=== PATIENT | female | born 1955 | race Caucasian/White ===

== ENCOUNTER 2019-12-20 01:53 | Observation (INO) | payer OTHER, SELFPAY ==
[2019-12-20] VITALS (13 sets, daily range): BP systolic 116–143; BP diastolic 61–79; PULSE 82–99; RESP 16–28; TEMP 36.4–36.6; O2SAT 83–98; BMI 23.3
--- NOTE | 2019-12-20 02:05 | XRR_ITS ---
PROCEDURE INFORMATION: Exam: XR Chest, 1 View Exam date and time: 12/20/2019 2:32 AM Age: 64 years old Clinical indication: Shortness of breath; Additional info: Cough TECHNIQUE: Imaging protocol: XR of the chest Views: 1 view. COMPARISON: CR Chest 2 views* [id number] 2017-09-20 18:18 FINDINGS: Lungs: There is a pulmonary parenchymal calcification consistent with remote granulomatous organism exposure. COPD with hyperexpanded lucent lungs. Interstitial thickening. Pleural space: Unremarkable. No pleural effusion. No pneumothorax. Heart/Mediastinum: Unremarkable. No cardiomegaly. Bones/joints: Unremarkable. XR/XR chest 1V portable [id number] IMPRESSION: COPD. No acute focal airspace opacities. Unchanged right apical pleural parenchymal thickening. Chronic mid left clavicle deformity.
[2019-12-20 02:37] LABS: Basophils # 0.1 10^3/uL (0.0-0.1); Basophils % 0.7 %; Eosinophils # 1.7 10^3/uL (0.0-0.8); Eosinophils % 15.2 %; Hematocrit 47.8 % (37.0-47.0); Hemoglobin 14.5 g/dL (11.5-15.3); Lymphocytes # 2.4 10^3/uL (0.8-4.8); Lymphocytes % 21.6 %; Mean Corpuscular HGB Conc 30.3 g/dL (30.0-36.0); Mean Corpuscular Hemoglobin 30.9 pg (28.0-34.0); Mean Corpuscular Volume 101.7 fL (81-99); Mean Platelet Volume 9.7 fL (7.4-10.4); Monocytes # 0.7 10^3/uL (0.2-0.9); Monocytes % 6.7 %; Neutrophils # 6.1 10^3/uL (1.8-7.7); Neutrophils % 55.6 %; Nucleated Red Blood Cells % 0 %; Platelet Count 249 10^3/cmm (130-400); Red Cell Distribution Width 13.2 % (12.1-15.1)
--- NOTE | 2019-12-20 02:43 | ED_ITS ---
HPI - SOB/Dyspnea General: Chief Complaint: Shortness of Breath/Dyspnea Stated Complaint: sob Time Seen by Provider: 12/20/19 02:05 History of Present Illness: HPI Narrative: Ms. Ramires is a nice 64-year-old female who comes in complaining of shortness of breath. She states her symptoms began 2 weeks ago and have progressively gotten worse. She denies any fever, chest pain, productive cough, hemoptysis or syncope. Patient states that she is wheezing. She was initially placed on Bactrim but completed this and continued to have symptoms. Then 4 days ago she was placed on doxycycline and an inhaled steroid but she states she still has not improved. The patient states exertion makes her symptoms worse and rest makes them better. She otherwise denies any complaints or concerns. Associated symptoms: Deny abdominal pain, chest congestion, chest pain, diaphoresis, dizziness, extremity pain, fever(s), hemoptysis, nausea, orthopnea, palpitations, polydipsia, syncope or vomiting Review of Systems General: Reports: other (negative unless marked) Const: Denies: fever, chills, body aches, fatigue, malaise or diaphoresis Eyes: Denies: change in vision or blurry vision ENMT: Denies: throat pain, painful swallowing, hoarseness, ear pain, ear discharge, Change in hearing or nasal discharge Card: Denies: chest pain, palpitations, irregular heart rhythm, syncope, pre- syncope, shortness of breath on exertion or shortness of breath when lying down Resp: Reports: shortness of breath, non-productive cough and wheezing; Denies: coughing up blood or chest congestion GI: Denies: abdominal pain, nausea, vomiting, vomiting blood, coffee grounds in vomit, diarrhea, constipation, cramping, blood in stool or black tarry stool : Denies: flank pain, painful urination, urinary frequency, urinary urgency, decreased urine ouput, urinary incontinence or blood in urine Musc: Denies: neck pain, back pain, extremity pain, extremity swelling, joint pain, joint swelling, joint warmth or joint stiffness Skin/Breast: Denies: rash, skin tenderness or yellow skin Neuro: Denies: headache, numbness in extremities, weakness in extremities, changes in sensation, lack of coordination, difficulty walking, dizziness, vertigo or confusion Endo: Denies: excessive thirst, tired all the time, cold intolerance, excessive sweating, flushing or hot flashes Colton/Lymph: Denies: easy bruising, easy bleeding, petechiae or enlarged lymph nodes All/Imm: Denies: hives, throat swelling, tongue swelling, facial swelling or acute wheezing PFSH ED PFSH: Medical History (Updated 12/20/19 @ 04:26 by Nadine Akins) COPD (chronic obstructive pulmonary disease) Left wrist dislocation Physical Exam Const: COMMON NORMALS: no apparent distress, oriented x3, no limitations, healthy appearing and well nourished EXAM LIMITATIONS: no altered mental status GENERAL APPEARANCE: cooperative, well kempt and well developed ORIENTATION/CONSCIOUSNESS: Yes awake HENMT: COMMON NORMALS: normocephalic, head/scalp atraumatic, hearing grossly normal bilaterally, external ears normal, EAC's normal, external nose normal and moist oral mucous membranes HEAD & SCALP: normal to inspection, normocephalic and atraumatic FACE & SINUS: normal facial exam and face symmetric NOSE: external nose normal and nares normal EXTERNAL EAR: Yes external ears normal EXTERNAL AUDITORY CANAL: EAC's normal MOUTH: oral and palatal mucosa normal and tongue normal Eye: COMMON NORMALS: PERRL, EOMs intact bilaterally, conjunctivae normal and no scleral icterus GENERAL EYE: normal appearance of both eyes and normal light reflex CONJUNCTIVA: Yes conjunctivae normal SCLERA: sclerae normal CORNEA: Yes corneas normal PUPIL: Yes PERRL DIRECT OPHTHALMOSCOPY: Yes normal light reflex Neck/C-Spine: COMMON NORMALS: full ROM, no lymphadenopathy, supple, no meningeal signs and no JVD GENERAL: Yes normal visual inspection and Yes trachea midline CERVICAL SPINE: Yes cervical ROM normal Chest: COMMONS NORMALS: inspection of chest normal and palpation of chest normal Resp: EFFORT & INSPECTION: Yes tachypneic, Yes pursed lip breathing, Yes labored, Yes actively coughing and Yes audible wheezes AUSCULTATION: rhonchi, wheezes and diminished lung sounds Cardio: COMMON NORMALS: no JVD, regular rate, regular rhythm, S1 normal heart sound, S2 normal heart sound, no gallops, no clicks, no murmurs and no rub JUGULAR VENOUS DISTENTION: no JVD RATE: regular rate RHYTHM: regular rhythm HEART SOUNDS: S1 normal and S2 normal GI: COMMON NORMALS: soft to palpation, non-tender, no hepatosplenomegaly and no masses INSPECTION: Yes normal to inspection PALPATION: Yes soft and Yes no hepatosplenomegaly : COMMON NORMALS: Yes no CVA tenderness BLADDER/KIDNEY EXAM: Yes no CVA tenderness Back/Pelvis: COMMON NORMALS: no CVA tenderness, thoracic and lumbar spine normal to inspection, no thoracic nor lumbar tenderness and thoraco-lumbar ROM normal Extremity: COMMON NORMALS: normal to inspection, full ROM, normal capillary refill, no joint enlargement, no clubbing, cyanosis or edema and no calf tenderness Neuro: COMMON NORMALS: oriented x3, CN's II-XII intact bilaterally, moves all extremities, no focal motor deficits and no sensory deficits noted MENINGEAL SIGNS: Yes no meningeal signs Psych: COMMON NORMALS: mental status grossly normal, thought process normal, cooperative, affect normal, speech normal and activity/motor behavior normal APPEARANCE: Yes well kempt SPEECH: Yes normal speech THOUGHT PROCESS: normal thought process Skin: COMMON NORMALS: no rashes or lesions noted, skin turgor normal, no jaundice, no petechiae and no mottling GENERAL SKIN EXAM: no rashes or lesions noted and turgor normal Course ED course: 0308 -patient's breathing better with more air movement after DuoNeb treatments. Vital Signs: Vital signs: Vital Signs Temperature 97.6 F 12/20/19 02:04 Pulse Rate 89 12/20/19 02:43 Respiratory Rate 18 12/20/19 02:35 Blood Pressure 130/78 12/20/19 02:04 Pulse Oximetry 98 12/20/19 02:43 MDM - SOB/Dyspnea MDM Narrative: Medical decision making narrative: 0423 -the patient is doing better and moving much more air after breathing treatments. She no across conversational dyspnea and is okay while at rest but does necessitate at least 2 L of nasal cannula oxygen to maintain oxygen saturation of 90% or higher. Believe that she likely has a COPD exacerbation with hypoxic respiratory failure. She is not in distress and will not need BiPAP at this time. She is not hypercapnic. I reviewed the case in full with Dr. Sommer, he agrees to admit and will place admission orders. We will send the COVID-19 testing and the patient has been in respiratory precautions since arrival. Lab Data: Labs: Lab Results 12/20/19 12/20/19 12/20/19 Range/Units 02:10 02:10 02:10 WBC 11.0 H (4.0-10.0) 10^3/ uL RBC 4.70 (4.1-5.3) 10^6/u L Hgb 14.5 (11.5-15.3) g/dL Hct 47.8 H (37.0-47.0) % MCV 101.7 H (81-99) fL MCH 30.9 (28.0-34.0) pg MCHC 30.3 (30.0-36.0) g/dL RDW 13.2 (12.1-15.1) % Plt Count 249 (130-400) 10^3/c mm MPV 9.7 (7.4-10.4) fL Neut % (Auto) 55.6 % Lymph % (Auto) 21.6 % Peach % (Auto) 6.7 % Eos % (Auto) 15.2 % Baso % (Auto) 0.7 % Neut # (Auto) 6.1 (1.8-7.7) 10^3/u L Lymph # (Auto) 2.4 (0.8-4.8) 10^3/u L Peach # (Auto) 0.7 (0.2-0.9) 10^3/u L Eos # (Auto) 1.7 H (0.0-0.8) 10^3/u L Baso # (Auto) 0.1 (0.0-0.1) 10^3/u L Nucleated RBC % (a uto) 0 % Nucleated RBCs # 0.0 /100WBC Specimen Type Sample Site ABG pH (7.35-7.45) ABG pCO2 (35-45) mmHg ABG pO2 (80.0-100.0) mmH g ABG HCO3 (22-26) mmol/L ABG Base Excess (-2.0-2.0) mmol/ L Jose Test Hematocrit (37-47) % O2 Delivery Device O2 Liters/Min % Group Care Worker ID Sodium 139 (136-145) mmol/L Potassium 4.0 (3.5-5.1) mmol/L Chloride 101 (98-107) mmol/L Carbon Dioxide 26 (22-29) mmol/L Anion Gap 16.0 (5-19) BUN 13 (8-23) mg/dL Creatinine 0.9 (0.5-0.9) mg/dL GFR Calculation 63.4 L (90-130) mL/min Glucose 116 H (65-115) mg/dL Calculated Osmolal ity 285 (285-295) mOsm/k g Lactic Acid (0.5-2.2) mmol/L Calcium 10.3 (8.5-10.5) mg/dL Magnesium 2.1 (1.7-2.3) mg/dL Total Bilirubin 0.2 (0.15-1.2) mg/dL AST 17 (0-32) U/L ALT 11 (0-33) U/L Alkaline Phosphata se 150 H (35-105) IU/L Troponin T Baselin e 8 (0-10) ng/mL NT-Pro-B Natriuret Pep 260 H (0-125) pg/mL Total Protein 7.5 (6.6-8.7) g/dL Albumin 4.4 (3.5-5.2) g/dL Globulin 3.1 (1.3-4.6) g/dL Influenza Type A A g (Negative) Influenza Type B A g (Negative) 12/20/19 12/20/19 12/20/19 Range/Units 02:10 02:15 02:40 WBC (4.0-10.0) 10^3/ uL RBC (4.1-5.3) 10^6/u L Hgb (11.5-15.3) g/dL Hct (37.0-47.0) % MCV (81-99) fL MCH (28.0-34.0) pg MCHC (30.0-36.0) g/dL RDW (12.1-15.1) % Plt Count (130-400) 10^3/c mm MPV (7.4-10.4) fL Neut % (Auto) % Lymph % (Auto) % Peach % (Auto) % Eos % (Auto) % Baso % (Auto) % Neut # (Auto) (1.8-7.7) 10^3/u L Lymph # (Auto) (0.8-4.8) 10^3/u L Peach # (Auto) (0.2-0.9) 10^3/u L Eos # (Auto) (0.0-0.8) 10^3/u L Baso # (Auto) (0.0-0.1) 10^3/u L Nucleated RBC % (a uto) % Nucleated RBCs # /100WBC Specimen Type Arterial Sample Site Brachial, left ABG pH 7.39 (7.35-7.45) ABG pCO2 45.0 (35-45) mmHg ABG pO2 93.0 (80.0-100.0) mmH g ABG HCO3 27.0 H (22-26) mmol/L ABG Base Excess 1.5 (-2.0-2.0) mmol/ L Jose Test N/a Hematocrit 44.6 (37-47) % O2 Delivery Device Nc O2 Liters/Min 2.0 % Group Care Worker ID [email or web address] Sodium (136-145) mmol/L Potassium (3.5-5.1) mmol/L Chloride (98-107) mmol/L Carbon Dioxide (22-29) mmol/L Anion Gap (5-19) BUN (8-23) mg/dL Creatinine (0.5-0.9) mg/dL GFR Calculation (90-130) mL/min Glucose (65-115) mg/dL Calculated Osmolal ity (285-295) mOsm/k g Lactic Acid 0.7 (0.5-2.2) mmol/L Calcium (8.5-10.5) mg/dL Magnesium (1.7-2.3) mg/dL Total Bilirubin (0.15-1.2) mg/dL AST (0-32) U/L ALT (0-33) U/L Alkaline Phosphata se (35-105) IU/L Troponin T Baselin e (0-10) ng/mL NT-Pro-B Natriuret Pep (0-125) pg/mL Total Protein (6.6-8.7) g/dL Albumin (3.5-5.2) g/dL Globulin (1.3-4.6) g/dL Influenza Type A A g Negative (Negative) Influenza Type B A g Negative (Negative) Imaging Data^: CXR: My impression: COPD changes but no focal infiltrates. CT Chest: Radiologist's impression: [address] [address] [address] Scan Report Signed Patient: Julia Ramires Unit #: [id number] : 1955 Age/Sex: 64 / F ADM Date: 12/20/19 Loc: ER Room/Bed: Attending Dr: Ordering Provider/Ordering MD: Nadine Akins DO Date of Service: 12/20/19 Procedure(s): CT angio chest PE protcl [id number] Accession Number(s): [id number] Report Number: [id number] PROCEDURE INFORMATION: Exam: CT Angiography Chest With Contrast Exam date and time: 12/20/2019 3:14 AM Age: 64 years old Clinical indication: Shortness of breath; Additional info: Dyspnea, hypoxia TECHNIQUE: Imaging protocol: Computed tomographic angiography of the chest with intravenous contrast. 3D rendering: MIP and/or 3D reconstructed images were created by the technologist. Total DLP: 611.23 mGy-cm Radiation optimization: All CT scans at this facility use at least one of these dose optimization techniques: automated exposure control; mA and/or kV adjustment per patient size (includes targeted exams where dose is matched to clinical indication); or iterative reconstruction. Contrast material: OMNI 350; Contrast volume: 79 ml; Contrast route: 20G; COMPARISON: CR XR chest 1V portable [id number] 2019-12-20 02:12 FINDINGS: Pulmonary arteries: No filling defects in the pulmonary arteries to suggest pulmonary emboli. Aorta: Unremarkable. No aortic aneurysm. No aortic dissection. Lungs: Mild paraseptal and moderate centrilobular upper lung pulmonary emphysema. Bronchial wall thickening. Mild peripheral ground-glass lung opacities. There is a pulmonary parenchymal calcification consistent with remote granulomatous organism exposure. There is a pulmonary parenchymal calcification consistent with remote granulomatous organism exposure. Pleural space: Mild peripheral right lung pleural thickening. Heart: Unremarkable. No cardiomegaly. No pericardial effusion. Kidneys and ureters: 4 cm simple right renal cyst. Lymph nodes: Right infrahilar enlarged 1.3 cm lymph node. Bones/joints: Unremarkable. No acute fracture. Soft tissues: Unremarkable. CT/CT angio chest PE protcl [id number] IMPRESSION: 1. Mild paraseptal and moderate centrilobular upper lung pulmonary emphysema. 2. No filling defects in the pulmonary arteries to suggest pulmonary emboli. 3. Right infrahilar enlarged 1.3 cm lymph node. 4. Bronchial wall thickening. Mild peripheral ground-glass lung opacities. Evidence of infection. COMMENTS: Consistent with the [employer] [place] [employer]'s Incidental Findings Committee white paper (J Am Francisco Radiol 2018): Any incidental cystic renal lesion classified in this report as too small to characterize or simple appearing is likely a benign cyst. No follow-up imaging is recommended for these lesions per consensus recommendations based on imaging criteria. Radiation Dose CTDIVOL = (mGy): DLP = 611.23 (mGy-cm) Dictated By: Isaak Leon MD Signed By: Isaak Leon MD Signed Date/Time: 12/20/19357 DD/ 5 EKG Data^: EKG 1: Attestation: I personally reviewed and interpreted this EKG as follows: EKG Interpretation Date: 12/20/19 EKG interpretation time: 03:27 Interpretation: Normal sinus rhythm at 91 beats a minute, normal axis, no blocks, normal intervals, no acute ST or T wave changes. Baseline wandering artifact. Discharge Plan Discharge Patient Disposition: Placed in Observation Clinical Impression: Acute exacerbation of chronic obstructive airways disease Respiratory failure with hypoxia Qualifiers: Chronicity: acute Qualified Code(s): J96.01 - Acute respiratory failure with hypoxia Condition: Stable Referrals: Scarlet Florian APRN [Primary Care Provider] - Coding Level of Care Code ED Communications Project Lead for Chg Fwd Exam Comprehensive
[2019-12-20 02:52] LABS: ABG PH Result 7.39 (7.35-7.45); Arterial Blood Gas Hematocrit 44.6 % (37-47); Base Excess ABG 1.5 mmol/L (-2.0-2.0); Blood Gas Sample Site Brachial, left; Blood Gas Sample Type Arterial; Oxygen Device NC
[2019-12-20 03:02] LABS: Lactic Sepsis W/Reflex 0.7 mmol/L (0.5-2.2)
--- NOTE | 2019-12-20 03:04 | CTR_ITS ---
PROCEDURE INFORMATION: Exam: CT Angiography Chest With Contrast Exam date and time: 12/20/2019 3:14 AM Age: 64 years old Clinical indication: Shortness of breath; Additional info: Dyspnea, hypoxia TECHNIQUE: Imaging protocol: Computed tomographic angiography of the chest with intravenous contrast. 3D rendering: MIP and/or 3D reconstructed images were created by the technologist. Total DLP: 611.23 mGy-cm Radiation optimization: All CT scans at this facility use at least one of these dose optimization techniques: automated exposure control; mA and/or kV adjustment per patient size (includes targeted exams where dose is matched to clinical indication); or iterative reconstruction. Contrast material: OMNI 350; Contrast volume: 79 ml; Contrast route: 20G; COMPARISON: CR XR chest 1V portable [id number] 2019-12-20 02:12 FINDINGS: Pulmonary arteries: No filling defects in the pulmonary arteries to suggest pulmonary emboli. Aorta: Unremarkable. No aortic aneurysm. No aortic dissection. Lungs: Mild paraseptal and moderate centrilobular upper lung pulmonary emphysema. Bronchial wall thickening. Mild peripheral ground-glass lung opacities. There is a pulmonary parenchymal calcification consistent with remote granulomatous organism exposure. There is a pulmonary parenchymal calcification consistent with remote granulomatous organism exposure. Pleural space: Mild peripheral right lung pleural thickening. Heart: Unremarkable. No cardiomegaly. No pericardial effusion. Kidneys and ureters: 4 cm simple right renal cyst. Lymph nodes: Right infrahilar enlarged 1.3 cm lymph node. Bones/joints: Unremarkable. No acute fracture. Soft tissues: Unremarkable. CT/CT angio chest PE protcl [id number] IMPRESSION: 1. Mild paraseptal and moderate centrilobular upper lung pulmonary emphysema. 2. No filling defects in the pulmonary arteries to suggest pulmonary emboli. 3. Right infrahilar enlarged 1.3 cm lymph node. 4. Bronchial wall thickening. Mild peripheral ground-glass lung opacities. Evidence of infection. COMMENTS: Consistent with the [employer]'s Incidental Findings Committee white paper (J Am Francisco Radiol 2018): Any incidental cystic renal lesion classified in this report as too small to characterize or simple appearing is likely a benign cyst. No follow-up imaging is recommended for these lesions per consensus recommendations based on imaging criteria. Radiation Dose CTDIVOL = (mGy): DLP = 611.23 (mGy-cm)
[2019-12-20 03:14] LABS: Influenza A by IFA Negative (Negative); Influenza B by IFA Negative (Negative)
[2019-12-20 03:15] LABS: Alanine Aminotransferase 11 U/L (0-33); Albumin Level 4.4 g/dL (3.5-5.2); Alkaline Phosphatase 150 IU/L (35-105); Aspartate Amino Transferase 17 U/L (0-32); Blood Urea Nitrogen 13 mg/dL (8-23); Calcium 10.3 mg/dL (8.5-10.5); Carbon Dioxide 26 mmol/L (22-29); Chloride 101 mmol/L (98-107); Globulin 3.1 g/dL (1.3-4.6); Glomerular Filtration Rate 63.4 mL/min (90-130); Glucose 116 mg/dL (65-115); Magnesium 2.1 mg/dL (1.7-2.3); NT Pro B Type Natriuretic Pept 260 pg/mL (0-125); Osmolality Calculated 285 mOsm/kg (285-295); Sodium 139 mmol/L (136-145); Total Bilirubin 0.2 mg/dL (0.15-1.2); Total Protein 7.5 g/dL (6.6-8.7)
[2019-12-20 03:23] LABS: Troponin(5th) Baseline 8 ng/mL (0-10)
[2019-12-20] MEDS: iohexol 350 mg/mL 100 mL Btl IV (03:45)
--- NOTE | 2019-12-20 04:17 | P.HP_ITS ---
Providers/Chief Complaint Primary Care Provider: Scarlet Florian APRN Chief Complaint: sob History of Present Illness Julia Ramires is a 64 year old female who carries diagnosis of COPD, active smoker, came in with chief complaint of shortness of breath. Patient is stating that she is not on oxygen at home, she is trying to cut down on her smoking, currently she is smoking less than half a pack a day, for last 3 to 4 weeks she has been feeling very tired and lethargic, initially she was having productive cough which transitioned to dry cough, she has not noticed any fever, no sick contacts, no recent traveling, her is in good health, she has been experiencing more shortness of breath on exertion, she is not very active at baseline, she talked with her primary care physician who initially prescribed doxycycline for her symptoms. Because of her lethargy and weakness she decided to come to ER for further evaluation. She is denying dysuria, abdominal pain, headache, diarrhea. Diagnostics in ER revealed hypoxic respiratory failure on room air, she was saturating 83%, did well on 3 L nasal cannula, blood gas reviewed, blood work seems unremarkable other than high alkaline phosphatase, CTA shows no PE but groundglass opacities with right infrahilar lymphadenopathy, emphysematous changes covid ordred After nasopharyngeal swab she is endorsing headache Review of Systems Const: Reports: body aches, fatigue and malaise; Denies: fever or chills Eyes: Denies: change in vision ENMT: Denies: throat pain or uvular edema Card: Reports: shortness of breath on exertion; Denies: chest pain, palpitations, swelling of feet/ankles or shortness of breath when lying down Resp: Reports: shortness of breath GI: Denies: abdominal pain : Denies: flank pain Musc: Reports: muscle cramps; Denies: neck pain Skin/Breast: Denies: rash Neuro: Denies: headache Psych: Reports: depression; Denies: anxiety Endo: Denies: excessive urination Colton/Lymph: Denies: easy bruising All/Imm: Denies: hives Medications/Allergies Home Medications Medication Instructions Recorded Confirmed Last Taken Type albuterol sulfate 1 inh INHALATION QID PRN 12/20/19 12/20/19 12/20/19 History duloxetine [Cymbalta] 90 mg PO DAILY 0412/20/19 12/20/19 History 90 mirtazapine 30 mg PO DAILY 12/20/19 12/20/19 12/20/19 History simvastatin 10 mg PO DAILY 12/20/19 12/20/19 12/20/19 History tiotropium bromide [Spiriva 2 puff INHALATION DAILY 12/20/19 12/20/19 12/20/19 History Respimat] Allergies Allergy/AdvReac Type Severity Reaction Status Date / Time No Known Allergies Allergy Verified 12/20/19 02:10 PFSH Acute PFSH: Medical History (Updated 12/20/19 @ 04:42 by Chasity Sommer MD) COPD (chronic obstructive pulmonary disease) H/O reduction of closed dislocation Left wrist dislocation Surgical History (Updated 12/20/19 @ 04:44 by Chasity Sommer MD) No significant past surgical history Family History (Updated 12/20/19 @ 04:42 by Chasity Sommer MD) Denies family history of Diabetes Clotting disorder Dementia Hyperlipidemia Family history of premature coronary artery disease Social History (Updated 12/20/19 @ 04:43 by Chasity Sommer MD) Smoking and tobacco status: current every day smoker cigarettes [ Other cigarette details: Half a pack a day ] Alcohol intake: never Substance/Drug Use: never Household members: spouse and family Housing: House Vitals/I&O/Wt Last Vital Signs Temp 97.6 F 12/20/19 02:04 Pulse 89 12/20/19 02:43 Resp 18 12/20/19 02:35 BP 130/78 12/20/19 02:04 Pulse Ox 98 12/20/19 02:43 Weight last 48 hrs Weight 63.503 kg Physical Exam Narrative: EXAM NARRATIVE: Very pleasant female currently sitting in her bed without active respiratory distress Saturating well on 3 L nasal cannula She has mild expiratory wheezing with diminished breath sounds S1, S2 no heart failure or tachycardia Abdomen soft nontender nondistended Neurologically nonfocal exam EOMI, PERRLA No sign of ischemia gangrene ulcer of lower extremities Appropriate mood and affect Data : 12/20/19 02:10 12/20/19 02:10 Micro: Microbiology 12/20/19 02:10 Blood Culture - Preliminary Blood SPECIMEN COLLECTED 12/20/19 02:12 Blood Culture - Preliminary Blood SPECIMEN COLLECTED A&P Assessment and plan (1) Respiratory failure with hypoxia: Status: Acute Qualifiers: Chronicity: acute Qualified Code(s): J96.01 - Acute respiratory failure with hypoxia (2) Acute exacerbation of chronic obstructive airways disease: Status: Acute Additional A&P Information Acute hypoxic respiratory failure due to COPD exacerbation Her cough has improved on outpatient doxycycline therapy, the reason she presented to the hospital is increased lethargy which I believe is secondary to hypoxic respiratory failure, CT lung is showing groundglass opacities without PE I will treat her with Levaquin for now Prednisone 40 mg for expiratory wheeze Bacterial antigen,Covid ordred MDIs for as needed shortness of breath, avoid nebulizers No active respiratory distress Home O2 evaluation Active smoker Counseled on smoking cessation and benefits on her health, patient is try to cut down on her smoking Depression: I would continue her duloxetine I would hold mirtazapine for now which can cause sedation Full code DVT prophylaxis: Lovenox Cardiac diet Attestations Medical Necessity Statement*: Anticipating discharge in less than 48 hours, needs to rule out covid 19 Needs home O2 evaluation before discharge Time Spent in Patient Care: 40 Coding Level of Care Code Acute Litigation Partner for Juliette Edwards Diagnoses Respiratory failure with hypoxia J96.01 Chronicity: acute Acute exacerbation of chronic obstructive airways disease J44.1
[2019-12-20] MEDS: levoFLOXacin 750 mg Tablet PO (04:20)
[2019-12-20 04:48] LABS: Troponin 5 2HR 8.82 ng/mL (0-10); Troponin 5 2HR Delta 0.82 ABS# (0-10)
--- NOTE | 2019-12-20 05:29 | PC.NURSE ---
RN reviewed and agrees with assessment.
[2019-12-20 05:57] LABS: Ferritin 47 ng/mL (15-150); Lactate Dehydrogenase 214 U/L (135-214)
[2019-12-20] MEDS: predniSONE 20 mg Tablet 40 MG PO (08:59)
[2019-12-20] MEDS: duloxetine 60 mg Capsule 90 MG PO (08:59)
[2019-12-20] MEDS: atorvastatin 40 mg Tablet 20 MG PO (08:59)
[2019-12-20] MEDS: enoxaparin 40 mg/0.4 mL Syringe SUBCUT (09:16)
[2019-12-20] MEDS: albuterol 8 gm MDI 2 PUFF INHALATION ×2 (09:25→20:36)
--- NOTE | 2019-12-20 11:40 | PC.CHAP ---
Pastoral Care Encounter/Spiritual Assessment Type of Contact [] Declined chair inspector visit [] Patient/Family/Request visit [] Outpatient visit [] Follow-up visit [] Physician referral [] Code/Alert [] Routine visit [] Staff referral [] Actively dying [] Patient sleeping [] Family support [] [] Out of room [] Palliative care [] [] Receiving care in room [] Pre-surgical visit [] Trauma [] Long length of stay [] ICU visit [] Other: Relational/Emotional Strength [] Patient feels connected with others/family/visitors/staff [] Distress [] Loneliness/isolation [] Abandonment Spirituality of Patient [] Person of Tabatha [] Attends Methodist of their Tabatha [] Believes in Prayer [] Reads Bible or Anabaptism materials [] There are Spiritual issues to be addressed Leather Goods Sales Representative Interventions [] Prayer [] Active listening [] Non-anxious presence [] Spiritual/emotional support [] Crisis/trauma care [] Spiritual counseling [] Bereavement support [] Provided bereavement packet [] Provided Bible/devotional materials [] Provided toy/stuffed animal, coloring book to patient or family member [] Provided Communion [] Anointing/Alloy [] Salvation [] Completed spiritual assessment [] Other: Impact on Illness or Injury [] Angry [] Fearful [] Anxious [] Often cries [] Exhaustion [] Unable to work [] Unable to attend adventism [] Unable to walk/stand [] Unable to read [] Unable to drive [] Unable to eat/drink [] Unable to sleep [] Unable to be with family [] Patient intubated [] Other: Summary PRECAUTIONS, NO VISIT Time spent with patient
[2019-12-20 16:52] LABS: Coronavirus Lab Test PTC Negative
[2019-12-21] VITALS (8 sets, daily range): BP systolic 103–128; BP diastolic 54–67; PULSE 71–94; RESP 16–20; TEMP 36.5–37.1; O2SAT 87–94
[2019-12-21] MEDS: enoxaparin 40 mg/0.4 mL Syringe SUBCUT (05:16)
[2019-12-21 05:20] LABS: Basophils % 0.1 %; Eosinophils % 0.2 %; Hematocrit 42.5 % (37.0-47.0); Hemoglobin 13.2 g/dL (11.5-15.3); Lymphocytes # 2.5 10^3/uL (0.8-4.8); Lymphocytes % 22.4 %; Mean Corpuscular HGB Conc 31.1 g/dL (30.0-36.0); Mean Corpuscular Hemoglobin 31.1 pg (28.0-34.0); Monocytes % 8.6 %; Neutrophils # 7.8 10^3/uL (1.8-7.7); Neutrophils % 68.4 %; Nucleated Red Blood Cells % 0 %; Platelet Count 241 10^3/cmm (130-400); Red Blood Count 4.25 10^6/uL (4.1-5.3); Red Cell Distribution Width 13.4 % (12.1-15.1); White Blood Count 11.3 10^3/uL (4.0-10.0)
[2019-12-21 05:34] LABS: Anion Gap 15.4 (5-19); Blood Urea Nitrogen 18 mg/dL (8-23); Calcium 10.2 mg/dL (8.5-10.5); Carbon Dioxide 27 mmol/L (22-29); Chloride 102 mmol/L (98-107); Glomerular Filtration Rate 63.4 mL/min (90-130); Glucose 116 mg/dL (65-115); Osmolality Calculated 287 mOsm/kg (285-295); Potassium 4.4 mmol/L (3.5-5.1); Sodium 140 mmol/L (136-145)
--- NOTE | 2019-12-21 08:31 | P.DS_ITS ---
Discharge Providers Date of Admission: 12/20/19 04:25 Date of Discharge: December 21, 2019 Attending Provider at Admission: Chasity Sommer MD Attending Provider at Discharge: Jeffrey Mitchell MD Primary Care Provider: Scarlet Florian APRN Diagnoses at Discharge Discharge Diagnosis (1) Respiratory failure with hypoxia: Status: Acute Qualifiers: Chronicity: acute Qualified Code(s): J96.01 - Acute respiratory failure with hypoxia (2) Acute exacerbation of chronic obstructive airways disease: Status: Acute Reason for Visit Reason for Visit: Reason For Visit: sob Hospital Course Discharge Summary: Patient presented with shortness of breath and diagnosed with acute COPD exacerbation. She had evidence of acute hypoxia but otherwise no pulmonary embolus. She had evidence of right infrahilar lymphadenopathy and I have discussed with patient the need for repeat CT scan in 2-3 months to make sure lymphadenopathy resolves otherwise she will need to have further evaluation. Discussed with patient regarding importance of smoking cessation. Patient voiced understanding but refused any pharmacological help. This morning patient reports feeling much better and denies any shortness of breath or chest pain. Her lung exam significantly improved compared to yesterday. She has very minimal upper airway transmitted coarse sounds but otherwise relatively good air movement. She is not in any distress. We will perform home O2 evaluation prior to discharge. Patient wants to go home and at this point given her clinical improvement I think it is safe to do. I will continue patient on Levaquin and prednisone for 5 more days. I will add Advair and patient to continue with her nebulized albuterol treatment at home along with Spiriva. I will make an outpatient follow-up with Dr. Lawler. This morning patient denies any shortness of breath or chest pain. Reports feeling much better and strong enough to be dismissed home. Physical Exam Const: COMMON NORMALS: no apparent distress and oriented x3 Resp: COMMON NORMALS: normal respiratory effort OTHER: Minimal upper airway transmitted coarse breath sounds. Cardio: COMMON NORMALS: regular rate, regular rhythm and S2 normal heart sound RATE: regular rate RHYTHM: regular rhythm HEART SOUNDS: S2 normal OTHER: No lower extremity edema GI: COMMON NORMALS: normal to inspection, nondistended, normoactive bowel sounds, soft to palpation and non-tender PALPATION: Yes soft Neuro: COMMON NORMALS: oriented x3 and no focal motor deficits Discharge Data Data Completed and Pending: Completed Studies During Hospitalization Category Date Time Status CT angio chest PE protcl [id number] Stat Cat Scan 12/20/19 03:04 Completed XR chest 1V meet ble [id number] Stat Exams 12/20/19 02:05 Completed Pending at discharge Category Date Time Status Blood Culture Sta t Lab 12/20/19 02:10 Results Labs from last 24 hours 12/21/19 12/21/19 12/20/19 04:47 04:47 04:30 WBC 11.3 H RBC 4.25 Hgb 13.2 Hct 42.5 MCV 100.0 H MCH 31.1 MCHC 31.1 RDW 13.4 Plt Count 241 MPV 10.0 Neut % (Auto) 68.4 Lymph % (Auto) 22.4 Long % (Auto) 8.6 Eos % (Auto) 0.2 Baso % (Auto) 0.1 Neut # (Auto) 7.8 H Lymph # (Auto) 2.5 Long # (Auto) 1.0 H Eos # (Auto) 0.0 Baso # (Auto) 0.0 Nucleated RBC % (a uto) 0 Nucleated RBCs # 0.0 Sodium 140 Potassium 4.4 Chloride 102 Carbon Dioxide 27 Anion Gap 15.4 BUN 18 Creatinine 0.9 GFR Calculation 63.4 L Glucose 116 H Calculated Osmolal ity 287 Calcium 10.2 Nasal/Oral COVID-1 9 PCR Negative Vitals: Last Vital Signs Temp 98.7 F 12/21/19 08:00 Pulse 80 12/21/19 08:00 Resp 18 12/21/19 08:00 BP 103/54 12/21/19 08:00 Pulse Ox 90 12/21/19 08:00 Discharge Plan Discharge Patient Disposition: Home, Self-Care Condition: Stable Prescriptions: New prednisone 20 mg Tablet 40 mg PO DAILY Qty: 5 RF: 0 Protonix [address] for susp in packet 40 mg PO DAILY Qty: 14 RF: 0 levofloxacin 750 mg Tablet 750 mg PO DAILY Qty: 5 RF: 0 fluticasone propion-salmeterol [Advair Diskus] 250-50 mcg/dose Blister With Device 1 puff inhalation BID.RESPIRATORY Qty: 1 RF: 0 Continued Cymbalta 60 mg Capsule,Delayed Release(Dr/Ec) 90 mg PO DAILY RF: 0 mirtazapine 30 mg Tablet,Disintegrating 30 mg PO DAILY RF: 0 simvastatin 10 mg Tablet 10 mg PO DAILY RF: 0 Spiriva Respimat 1.25 mcg/actuation Mist 2 puff INHALATION DAILY RF: 0 albuterol sulfate 90 mcg/actuation Hfa Aerosol Inhaler 1 inh INHALATION QID PRN (Reason: Bronchodilation) RF: 0 Discharge Orders: Discharge Order (Routine); Ordered 12/21/19 Ordered By: Jeffrey Mitchell Referrals: Scarlet Florian APRN [Primary Care Provider] - 4-7 days (Please call Sunday to set up a follow up appointment) Hanane Lawler MD [Physician] - 4-7 days (Please call Sunday to set up a follow up appointment) Discharge Diet: Advance as tolerated Discharge Activity: Increase activity as tolerated Activity Restrictions/Additional Instructions: Please call your doctor or present to emergency department if your condition worsens or you develop diarrhea, lightheadedness, fatigue or see blood in your stool or black stool. Please discuss with your doctor if you think you need nicotine patch to quit smoking. Please discuss with your doctor to have repeat CT scan of chest in 2 to 3 months to further evaluate right infrahilar lymphadenopathy which appears to be seco ndary infection but we need to make sure it is resolved otherwise further evaluation needs to be performed as we have discussed. Discharge Attestations Time Spent in Discharge Care*: greater than 30 min Quality Metrics Clinical Quality Measures During this hospital stay, did patient experience: None Coding Level of Care Code Acute Tire Service Supervisor for Juliette Edwards Diagnoses Respiratory failure with hypoxia J96.01 Chronicity: acute Acute exacerbation of chronic obstructive airways disease J44.1
[2019-12-21] MEDS: albuterol 8 gm MDI 2 PUFF INHALATION (09:07)
[2019-12-21] MEDS: pantoprazole DR 40 mg Tablet PO (09:07)
[2019-12-21] MEDS: predniSONE 20 mg Tablet 40 MG PO (09:07)
[2019-12-21] MEDS: atorvastatin 40 mg Tablet 20 MG PO (09:08)
[2019-12-21] MEDS: levoFLOXacin 750 mg Tablet PO (09:08)
--- NOTE | 2019-12-21 13:31 | PC.NURSE ---
Discharge note This nurse went over all discharge orders, future appointments, and medication education on adverse affects. IV was removed with catheter in tact. Patient left unit by wheelchair.
== END 2019-12-21 12:45 | disposition home or self-care (01) ==
LOC: ER 04:26 → CSU 04:59 → MEDSURG 16:00
PROVIDERS: Admitting Provider Internal Medicine; Emergency Provider Emergency Medicine; Family Provider Nurse Practitioner Family; PCP Nurse Practitioner Family; Visit Provider Internal Medicine
DX: J96.01 Acute respiratory failure with hypoxia (principal); J44.1 Chronic obstructive pulmonary disease with (acute) exacerbation; F17.210 Nicotine dependence, cigarettes, uncomplicated; Z11.59 Encounter for screening for other viral diseases
CPT/HCPCS: 12345; 36415; 36600; 71045; 71275; 80048; 80053; 82728; 82803; 83605; 83615; 83735; 83880; 84484; 85025; 86140; 86403; 87040; 87449; 87635; 87804; 94640; 96372; 96374; 99283; 99285; G0378; J1650; J2930; J7512; Q9967

== ENCOUNTER 2020-01-11 20:56 | Emergency (ER) | payer OTHER, SELFPAY ==
[2020-01-11 20:58] VITALS: BP 128/62; PULSE 91; RESP 26; O2SAT 96; BMI 26.6
--- NOTE | 2020-01-11 21:01 | ECG_ITS ---
Measurements Intervals [place] Rate: 90 P: 83 MT: 137 QRS: 76 QRSD: 86 T: 67 QT: 353 QTc: 433 SINUS RHYTHM POSSIBLE RIGHT ATRIAL ENLARGEMENT [0.25mV P WAVE] NONSPECIFIC ST & T-WAVE ABNORMALITY No previous ECG available for comparison Electronically Signed On 01-12-2020 18:15:37 CDT by Chasity Amor M.D. [id number]
--- NOTE | 2020-01-11 21:01 | XR_ITS ---
WS: [id number] XR chest 1V portable [id number] REASON FOR EXAM: sob FINDINGS: The lung june are again hyperexpanded. Apical nodules are seen in both apices a definite mass is not seen but we recommend follow-up to rule out a possible developing apical masses. There is a granuloma in the right lung base. There is calcified granulomas scattered throughout both lung june. XR/XR chest 1V portable [id number] IMPRESSION: Apical thickening bilaterally but no definite mass is seen we suggest follow-up CT in 3-6 months be made. Chronic obstructive pulmonary disease. Granulomatous changes.
[2020-01-11 21:05] VITALS: TEMP 36.7
--- NOTE | 2020-01-11 21:05 | W.ED.SOB ---
HPI - SOB/Dyspnea General: Chief Complaint: Shortness of Breath/Dyspnea Stated Complaint: SOB Time Seen by Provider: 01/11/20 21:01 Source: patient and EMS Mode of arrival: EMS Limitations: no limitations History of Present Illness: HPI Narrative: 65-year-old female with a long history of COPD and is on 2 L of oxygen at home. She states that over the last 3 days she has had increased cough and wheezing. She states she just quit smoking 4 days ago. She denies any fevers. Patient is currently able speak in full sentences and is in mild distress. Patient received Solu-Medrol and breathing treatments in route. MD elicited complaint: shortness of breath Pertinent past history: COPD Onset (ago): day(s) Timing: intermittent Severity: moderate Exacerbating factors: exertion Relieving factors: rest Associated symptoms: Deny abdominal pain, chest pain, fever(s), nausea or vomiting Review of Systems Const: Denies: fever, chills, body aches or change in appetite Eyes: Denies: blurry vision or eye discomfort ENMT: Denies: throat pain or dental pain Card: Denies: chest pain Resp: Reports: shortness of breath and wheezing GI: Denies: abdominal pain, nausea, vomiting or diarrhea : Denies: painful urination Musc: Denies: neck pain or back pain Skin/Breast: Denies: rash Neuro: Denies: headache Psych: Denies: depression Colton/Lymph: Denies: easy bruising All/Imm: Denies: hives PFSH ED PFSH: Medical History COPD (chronic obstructive pulmonary disease) Depression GERD (gastroesophageal reflux disease) H/O reduction of closed dislocation Hyperlipidemia Left wrist dislocation Surgical History No significant past surgical history Family History Denies family history of Diabetes Clotting disorder Dementia Hyperlipidemia Family history of premature coronary artery disease Social History Smoking and tobacco status: former smoker Quit status (tobacco): considering quitting Alcohol intake: never Lives independently: Yes Household members: spouse and family Housing: House Marital status: Current occupational status: retired History of recent travel: No Current gender identity: Female Physical Exam Const: COMMON NORMALS: no apparent distress, oriented x3 and healthy appearing HENMT: COMMON NORMALS: normocephalic and head/scalp atraumatic HEAD & SCALP: normocephalic and atraumatic Eye: COMMON NORMALS: PERRL and EOMs intact bilaterally PUPIL: Yes PERRL Neck/C-Spine: COMMON NORMALS: full ROM and supple Chest: COMMONS NORMALS: inspection of chest normal and palpation of chest normal Resp: COMMON NORMALS: normal respiratory effort, no retractions, no use of accessory muscles and clear to auscultation bilaterally AUSCULTATION: clear to auscultation bilaterally and wheezes Cardio: COMMON NORMALS: regular rate, regular rhythm and no murmurs RATE: regular rate RHYTHM: regular rhythm GI: COMMON NORMALS: normal to inspection, nondistended, normoactive bowel sounds, soft to palpation, non-tender and no masses PALPATION: Yes soft Extremity: COMMON NORMALS: normal to inspection and full ROM Neuro: COMMON NORMALS: oriented x3, moves all extremities and no focal motor deficits Psych: COMMON NORMALS: mental status grossly normal, thought process normal and cooperative THOUGHT PROCESS: normal thought process Skin: COMMON NORMALS: no rashes or lesions noted and no wounds GENERAL SKIN EXAM: no rashes or lesions noted Course Vital Signs: Vital signs: Vital Signs Temperature 98.0 F 01/11/20 21:05 Pulse Rate 94 01/11/20 21:28 Respiratory Rate 20 H 01/11/20 21:28 Blood Pressure 128/62 01/11/20 20:58 Pulse Oximetry 97 01/11/20 21:28 MDM - SOB/Dyspnea MDM Narrative: Medical decision making narrative: Patient presents with a COPD exacerbation. Patient's x-ray here shows no pneumonia. She is in no distress here and will place on steroids and antibiotics. Patient is to follow-up with books salesperson in 3 to 5 days and return if worsening. Lab Data: Labs: Lab Results 01/11/20 01/11/20 Range/Units 21:07 21:07 WBC 9.8 (4.0-10.0) 10^3/ uL RBC 4.27 (4.1-5.3) 10^6/u L Hgb 13.6 (11.5-15.3) g/dL Hct 42.8 (37.0-47.0) % MCV 100.2 H (81-99) fL MCH 31.9 (28.0-34.0) pg MCHC 31.8 (30.0-36.0) g/dL RDW 12.9 (12.1-15.1) % Plt Count 218 (130-400) 10^3/c mm MPV 10.3 (7.4-10.4) fL Neut % (Auto) 52.8 % Lymph % (Auto) 19.4 % Mcpherson % (Auto) 7.3 % Eos % (Auto) 19.6 % Baso % (Auto) 0.7 % Neut # (Auto) 5.2 (1.8-7.7) 10^3/u L Lymph # (Auto) 1.9 (0.8-4.8) 10^3/u L Mcpherson # (Auto) 0.7 (0.2-0.9) 10^3/u L Eos # (Auto) 1.9 H (0.0-0.8) 10^3/u L Baso # (Auto) 0.1 (0.0-0.1) 10^3/u L Nucleated RBC % (a uto) 0 % Nucleated RBCs # 0.0 /100WBC Sodium 137 (136-145) mmol/L Potassium 4.1 (3.5-5.1) mmol/L Chloride 101 (98-107) mmol/L Carbon Dioxide 27 (22-29) mmol/L Anion Gap 13.1 (5-19) BUN 11 (8-23) mg/dL Creatinine 0.9 (0.5-0.9) mg/dL GFR Calculation 63.2 L (90-130) mL/min Glucose 111 (65-115) mg/dL Calculated Osmolal ity 281 L (285-295) mOsm/k g Calcium 9.8 (8.5-10.5) mg/dL Total Bilirubin 0.4 (0.15-1.2) mg/dL AST 14 (0-32) U/L ALT 7 (0-33) U/L Alkaline Phosphata se 140 H (35-105) IU/L Total Protein 7.0 (6.6-8.7) g/dL Albumin 4.1 (3.5-5.2) g/dL Globulin 2.9 (1.3-4.6) g/dL Imaging Data^: CXR: My impression: no acute abnormality EKG Data^: EKG 1: Attestation: I personally reviewed and interpreted this EKG as follows: EKG Interpretation Date: 01/11/20 EKG interpretation time: 21:24 Interpretation: nsr hr [address] or t wave abnormalities qrs 86 qtc 401 Discharge Plan Discharge Patient Disposition: Home, Self-Care Clinical Impression: COPD (chronic obstructive pulmonary disease) Qualifiers: COPD type: unspecified COPD Qualified Code(s): J44.9 - Chronic obstructive pulmonary disease, unspecified Condition: Stable Prescriptions: New Keflex 500 mg capsule 500 mg PO Q6H 7 Days Qty: 28 RF: 0 prednisone 50 mg tablet 50 mg PO DAILY Qty: 5 RF: 0 No Action Anoro Ellipta 62.5-25 mcg/actuation blister with device 1 inh INHALATION DAILY 90 Days Qty: 60 RF: 3 Cymbalta 60 mg Capsule,Delayed Release(Dr/Ec) 90 mg PO DAILY RF: 0 mirtazapine 30 mg Tablet,Disintegrating 30 mg PO DAILY RF: 0 simvastatin 10 mg Tablet 10 mg PO DAILY RF: 0 albuterol sulfate 90 mcg/actuation Hfa Aerosol Inhaler 1 inh INHALATION QID PRN (Reason: Bronchodilation) RF: 0 Protonix [address] for susp in packet 40 mg PO DAILY Qty: 14 RF: 0 Advair Diskus 250-50 mcg/dose Blister With Device 1 puff inhalation BID.RESPIRATORY Qty: 1 RF: 0 Discharge Orders: Discharge Order (Routine); Ordered 01/11/20 Ordered By: Chantal Sands Referrals: Scarlet Florian APRN [Primary Care Provider] - 1-3 days Discharge Diet: Advance as tolerated Discharge Activity: Resume usual activity Patient Instructions: Chronic Obstructive Pulmonary Disease (ED) Coding Level of Care Code ED Associate Curator for Chg Fwd Exam Comprehensive
[2020-01-11 21:13] LABS: Basophils # 0.1 10^3/uL (0.0-0.1); Basophils % 0.7 %; Eosinophils # 1.9 10^3/uL (0.0-0.8); Eosinophils % 19.6 %; Hematocrit 42.8 % (37.0-47.0); Hemoglobin 13.6 g/dL (11.5-15.3); Lymphocytes # 1.9 10^3/uL (0.8-4.8); Lymphocytes % 19.4 %; Mean Corpuscular HGB Conc 31.8 g/dL (30.0-36.0); Mean Corpuscular Hemoglobin 31.9 pg (28.0-34.0); Mean Corpuscular Volume 100.2 fL (81-99); Mean Platelet Volume 10.3 fL (7.4-10.4); Monocytes # 0.7 10^3/uL (0.2-0.9); Monocytes % 7.3 %; Neutrophils # 5.2 10^3/uL (1.8-7.7); Neutrophils % 52.8 %; Nucleated Red Blood Cells % 0 %; Platelet Count 218 10^3/cmm (130-400); Red Blood Count 4.27 10^6/uL (4.1-5.3); Red Cell Distribution Width 12.9 % (12.1-15.1); White Blood Count 9.8 10^3/uL (4.0-10.0)
[2020-01-11] MEDS: ipratropium-albuterol 3 mL Neb INHALATION (21:21)
[2020-01-11 21:22] VITALS: PULSE 93; RESP 22; O2SAT 97
[2020-01-11 21:28] VITALS: PULSE 94; RESP 20; O2SAT 97
[2020-01-11 21:29] LABS: Alanine Aminotransferase 7 U/L (0-33); Albumin Level 4.1 g/dL (3.5-5.2); Alkaline Phosphatase 140 IU/L (35-105); Anion Gap 13.1 (5-19); Aspartate Amino Transferase 14 U/L (0-32); Blood Urea Nitrogen 11 mg/dL (8-23); Calcium 9.8 mg/dL (8.5-10.5); Carbon Dioxide 27 mmol/L (22-29); Chloride 101 mmol/L (98-107); Globulin 2.9 g/dL (1.3-4.6); Glomerular Filtration Rate 63.2 mL/min (90-130); Glucose 111 mg/dL (65-115); Osmolality Calculated 281 mOsm/kg (285-295); Potassium 4.1 mmol/L (3.5-5.1); Sodium 137 mmol/L (136-145); Total Bilirubin 0.4 mg/dL (0.15-1.2)
[2020-01-11 22:04] VITALS: BP 114/76; PULSE 99; RESP 18; O2SAT 94
== END 2020-01-11 22:05 | disposition home or self-care (01) ==
LOC: ER 23:17
PROVIDERS: Emergency Provider Emergency Medicine; Family Provider Nurse Practitioner Family; PCP Nurse Practitioner Family
DX: J44.9 Chronic obstructive pulmonary disease, unspecified (principal); Z99.81 Dependence on supplemental oxygen; E78.5 Hyperlipidemia, unspecified; Z87.891 Personal history of nicotine dependence
CPT/HCPCS: 12345; 36415; 71045; 80053; 85025; 93005; 94640; 99282; 99284; J7611

== ENCOUNTER 2020-02-18 09:45 | Outpatient (CLI) | payer OTHER, SELFPAY ==
--- NOTE | 2020-02-18 10:00 | CT_ITS ---
WS: [id number] CT CHEST TECHNIQUE: Noncontrast CT of the chest with coronal and sagittal reformatted images. CLINICAL INFORMATION: Hilar lymphadenopathy COMPARISON: CT chest December 20, 2019 DLP: 620.[address] scans at [facility] use at least one of these dose optimization techniques: automat ed exposure control; mA and/or kV adjustment per patient size (includes targeted exams where dose is matched to clinical indication); or iterative reconstruction. FINDINGS: Mild paraseptal and centrilobular emphysematous change worse in the upper lobes. Again seen is the ri ght infrahilar lymph node measuring 9 mm today decreased in size. Slightly prominent pretracheal lymp h node measuring 8 mm. Otherwise no mediastinal or hilar lymphadenopathy. Fibrosis in the lung apices. Groundglass infiltrates in the lower lobes have improved and essentially resolved compared to previous. No new pulmonary infiltrates. No consolidation or pleural fluid. Moderate thoracic kyphosis. Thoracic curve convex right.Adrenal glands are normal. Normal GE junction . CT/CT chest wo con [id number] IMPRESSION: 1. Mild chronic emphysematous changes with periseptal and centrilobular emphys trae unchanged. 2. Previously described ground glass infiltrates in the lower lobes have essen tially resolved. 3. No new pulmonary infiltrates. 4. Slightly prominent right hilar lymph node measuring 9 mm is decreased in si ze. Prominent 8 mm pretracheal lymph node. No mediastinal or hilar lymphadenopa thy today. 5. No other significant changes from previous.
== END 2020-02-18 09:46 | disposition home or self-care (01) ==
LOC: RADWPI 09:46
PROVIDERS: Family Provider Nurse Practitioner Family; PCP Nurse Practitioner Family; Visit Provider Internal Medicine Critical Care Medicine
DX: R59.0 Localized enlarged lymph nodes (principal)
CPT/HCPCS: 71250

== ENCOUNTER 2020-02-24 11:00 | Outpatient (CLI) | payer OTHER, SELFPAY | END 2020-02-24 11:01 | disposition home or self-care (01) | LOC: SLEEP 02-26 09:05 | PROVIDERS: Family Provider Nurse Practitioner Family; PCP Nurse Practitioner Family; Visit Provider Internal Medicine Critical Care Medicine | DX: J96.11 Chronic respiratory failure with hypoxia (principal) | CPT/HCPCS: 94762 ==

== ENCOUNTER 2020-03-15 13:02 | Outpatient (CLI) | payer OTHER, SELFPAY ==
--- NOTE | 2020-03-15 14:13 | PFTS_ITS ---
Date of Study:03/15/20 Date of Dictation: MECHANICS: Forced vital capacity (FVC) is reduced. Forced expiratory volume in one second (FEV1) is reduced. FEV1/FVC is reduced. FLOW VOLUME LOOP: Reduced flow at all lung volumes with scooping. LUNG VOLUMES: Total lung capacity (TLC) is normal. Residual volume (RV) is increased. DIFFUSING CAPACITY FOR CARBON MONOXIDE: Moderately reduced. INTERPRETATION: The pulmonary function tests are consistent with severe obstruction. There is no significant postbronchodilator response. Lung volumes are consistent with air trapping. Gas exchange (DLCO) is moderately reduced. MTDD
[2020-03-15 14:15] VITALS: O2SAT 95
== END 2020-03-15 13:03 | disposition home or self-care (01) ==
LOC: RT 13:02
PROVIDERS: PCP Nurse Practitioner Family; Visit Provider Internal Medicine Critical Care Medicine
DX: J44.9 Chronic obstructive pulmonary disease, unspecified (principal)
CPT/HCPCS: 94060; 94726; 94729; J7611

== ENCOUNTER 2021-05-17 10:02 | Outpatient (CLI) | payer OTHER, SELFPAY ==
--- NOTE | 2021-05-17 10:15 | CT_ITS ---
WS: [id number] LDCT LUNG CANCER SCREENING TECHNIQUE: Noncontrast CT of the chest with coronal and sagittal reformatted images. CLINICAL INFORMATION: Nicotine Dependence COMPARISON: None. DLP: 55.38 mGy.cm DIvol: 1.[address] scans at [facility] use at least one of these dose optimization techniques: automat ed exposure control; mA and/or kV adjustment per patient size (includes targeted exams where dose is matched to clinical indication); or iterative reconstruction. FINDINGS: Mild paraseptal and centrilobular emphysematous change worse in the upper lobes. Again seen is the sl ightly prominent right infrahilar lymph node and pretracheal lymph node unchanged. Subsegmental atele ctasis in the lingula. A few calcified granulomas. No mediastinal or hilar lymphadenopathy. Fibrosis in the lung apices. Thoracic kyphosis.Adrenal glands are normal. CT/CT lung screening [id number] IMPRESSION: LUNG-RADS: 1-Negative FOLLOW UP: 12 Month: Continue annual screening with LDCT
== END 2021-05-17 10:03 | disposition home or self-care (01) ==
LOC: CT 10:03
PROVIDERS: PCP Nurse Practitioner Family; Visit Provider Internal Medicine Critical Care Medicine
DX: Z12.2 Encounter for screening for malignant neoplasm of respiratory organs (principal); F17.210 Nicotine dependence, cigarettes, uncomplicated
CPT/HCPCS: 71271

== ENCOUNTER → 2021-11-21 14:07 | Outpatient (BNVA) | payer OTHER, SELFPAY | PROVIDERS: PCP Nurse Practitioner Family; Visit Provider Internal Medicine Critical Care Medicine | DX: J44.9 Chronic obstructive pulmonary disease, unspecified (principal); G47.34 Idiopathic sleep related nonobstructive alveolar hypoventilation; J30.9 Allergic rhinitis, unspecified; F17.210 Nicotine dependence, cigarettes, uncomplicated; K21.9 Gastro-esophageal reflux disease without esophagitis; E78.5 Hyperlipidemia, unspecified | CPT/HCPCS: 99214 ==

== ENCOUNTER 2022-02-24 09:17 | Outpatient (CLI) | payer MEDICARE, OTHER, SELFPAY ==
[2022-02-24 10:20] VITALS: BMI 23.3
--- NOTE | 2022-02-24 10:23 | NMCV_ITS ---
NM paco perf SPECT r/s* [id number] Julia Ramires Age: 67 Gender: F : 1955 Exam Date: 02/24/2022 10:25 Ordering Phys: Idalia Reyes MD ([email or web address]) Technologist: SILVIO Prado Exam Location: [facility] Indications: CHEST PAIN STRESS TEST Please see separate stress test report in [facility] for full findings IMAGE PROTOCOL Rest/Stress 1 Lexiscan Day Radiopharmaceutical Dose (mCi) Administration Site Administered by Rest: Tc-99m 11.0 IV SILVIO Rivera Sestamibi Stress:Tc-99m 32.6 IV SILVIO Rivera Sestamibi Rest: 24-Feb-2022 60 Discovery 630 Stress: 24-Feb-2022 30 Discovery 630 0.4mg Lexiscan. Images obtained in supine and prone position. SPECT RESULTS Technical Quality: Excellent Raw Data Analysis: Normal Image Corrections: No attenuation or motion correction applied Summed Stress Score: 0 Summed Rest Score: 0 Summed Difference Score: 0 PERFUSION FINDINGS SPECT images demonstrate homogeneous tracer distribution throughout the myocardium. FUNCTIONAL RESULTS (calculated via Gated SPECT) Stress Image LV EF (%): 82 Stress EDV (mL):39 TID: 0.96 Stress ESV (mL):7 FUNCTIONAL FINDINGS: The left ventricle is normal in size. Transient Ischemia Dilatation of 0.96. There is hyperdynamic left ventricular global systolic function. The left ventricular ejection fraction is normal with a value of 82%. There is hyperdynamic left ventricular wall thickening. IMPRESSIONS 1. Myocardial perfusion imaging is normal. 2. Overall left ventricular systolic function is hyperdynamic without regional wall motion abnormalities. 3. The left ventricular ejection fraction is normal with a value of 82%. 4. EKG portion of the study will be reported separately. Idalia Reyes MD (Electronically Signed) Final Date: 25 February 2022 19:45 S
--- NOTE | 2022-02-24 10:23 | ECG_ITS ---
[facility] Test Date: 2022-02-24 Pat Name: Julia Ramires Department: Room: Gender: Female Board Handler: Maite Quick : 1955 Requested By: Idalia Reyes Order Number: [id number] Carlito MD: Idalia Reyes M.D. Interpretive Statements NAME OF STUDY: LEXISCAN SESTAMIBI STRESS TEST INDICATION: Chest Pain PROCEDURE: At the baseline, the blood pressure was 132/61 mmHg with a heart rate of 82 bpm. The electrocardiogram showed normal sinus rhythm, normal axis with normal ST and T's. The Lexiscan was infused over a period of 20 seconds. A total of 0.4 milligrams of Lexiscan was infused. The stress phase was continued for a total of 5 minutes. Heart rate at the end of the stress phase was 94 bpm with a blood pressure of 111/47 mmHg. The EKG at the peak infusion revealed sinus rhythm with no significant ST-T wave changes. Sestamibi was injected 20 seconds after the Lexiscan infusion. Blood pressure at the end of the recovery phase was 120/52 mmHg with a heart rate of 94 beats per minute. CONCLUSION: 1. Normal EKG response to LexiScan infusion. 2. No LexiScan induced chest pain or cardiac arrhythmia. 3. Normal blood pressure and heart rate response. 4. Sestamibi/sestamibi perfusion scan pending; see separate report. Electronically Signed On 02-26-2022 13:17:48 CDT by Idalia Reyes M.D. [id number]
--- NOTE | 2022-02-24 11:21 | PC.NURSE ---
pt not ablt to complete exercise stress test. pt order on original order. will change to gualberto now
[2022-02-24 11:44] VITALS: BP 120/52; PULSE 94
[2022-02-24] MEDS: regadenoson 0.4 Mg/5 ml Syringe IVP (11:44)
== END 2022-02-24 09:18 | disposition home or self-care (01) ==
LOC: RAD 09:20 → CDL 10:16
PROVIDERS: PCP Nurse Practitioner Family; Visit Provider Internal Medicine Cardiovascular Disease
DX: R07.9 Chest pain, unspecified (principal)
CPT/HCPCS: 78452; 93017; A9500; J2785

== ENCOUNTER → 2022-04-13 14:04 | Outpatient (BNVA) | payer MEDICARE, OTHER, SELFPAY | PROVIDERS: PCP Nurse Practitioner Family; Visit Provider Internal Medicine Cardiovascular Disease | DX: R06.02 Shortness of breath (principal) | CPT/HCPCS: 99213; 99214 ==

== ENCOUNTER → 2022-05-25 10:45 | Outpatient (BNVA) | payer MEDICARE, OTHER, SELFPAY | PROVIDERS: PCP Nurse Practitioner Family; Visit Provider Internal Medicine Critical Care Medicine | DX: J44.9 Chronic obstructive pulmonary disease, unspecified (principal); F17.210 Nicotine dependence, cigarettes, uncomplicated; G47.34 Idiopathic sleep related nonobstructive alveolar hypoventilation; J30.9 Allergic rhinitis, unspecified; Z99.81 Dependence on supplemental oxygen | CPT/HCPCS: 99214 ==

== ENCOUNTER → 2022-09-12 12:30 | Outpatient (BNVA) | payer MEDICARE, OTHER, SELFPAY | PROVIDERS: PCP Nurse Practitioner Family; Visit Provider Nurse Practitioner Family | DX: J44.9 Chronic obstructive pulmonary disease, unspecified (principal); J96.01 Acute respiratory failure with hypoxia; E78.49 Other hyperlipidemia; E55.9 Vitamin D deficiency, unspecified | CPT/HCPCS: 80053; 80061; 82306; 82607; 83735; 84443; 85025 ==

== ENCOUNTER 2022-09-13 12:13 | Outpatient (CLI) | payer MEDICARE, OTHER, SELFPAY ==
--- NOTE | 2022-09-13 12:30 | CT_ITS ---
WS: [id number] LDCT LUNG CANCER SCREENING TECHNIQUE: Noncontrast CT of the chest with coronal and sagittal reformatted images. CLINICAL INFORMATION: lung screening COMPARISON: May 17, 2021 DLP: 75.21 mGy.cm DIvol: Mean CTDIvol: 1.60 (mGy) All CT scans at [facility] use at least one of these dose optimization techniques: automat ed exposure control; mA and/or kV adjustment per patient size (includes targeted exams where dose is matched to clinical indication); or iterative reconstruction. FINDINGS: Mild preseptal and centrilobular emphysematous changes worse in the upper lobes similar to previous. New opacity in the LEFT upper lobe anteriorly adjacent to the bronchus measuring 5 mm is new from pre vious. Additional inflammatory appearing tree-in-bud opacities in the lingula. New area of subpleural spicul ation LEFT upper lobe laterally adjacent to the fissure measuring 9 x 13 mm. Associated pleural thic kening in this area. Additional new patchy subpleural opacities in the LEFT lower lobe laterally and both lower lobes post erior medially are new from previous and may be infectious or inflammatory but nonspecific. Persisten t fibrosis in the lung apices. Calcified granuloma RIGHT upper lobe. CT/CT lung screening [id number] IMPRESSION: New subpleural spiculated opacity in the LEFT upper lobe laterally with pleural thickening adjacent to the fissure. This measures 13 x 9 mm and recommend furt her evaluation with PET/CT and/or short interval 3 month follow-up. Additional patchy subpleural nodular opacities in the LEFT lower lobe laterally and both lower lobes posterior medially near the diaphragm are new from previo us. Recommend PET CT or three-month follow-up of these areas. LUNG-RADS: 4A-Probably Suspicious FOLLOW UP: PET/CT recommended
== END 2022-09-13 12:14 | disposition home or self-care (01) ==
LOC: RAD 12:15
PROVIDERS: PCP Nurse Practitioner Family; Visit Provider Internal Medicine Pulmonary Disease
DX: Z12.2 Encounter for screening for malignant neoplasm of respiratory organs (principal); F17.210 Nicotine dependence, cigarettes, uncomplicated
CPT/HCPCS: 71271

== ENCOUNTER 2022-09-23 11:14 | Outpatient (CLI) | payer MEDICARE, OTHER, SELFPAY ==
--- NOTE | 2022-09-23 11:00 | PETR_ITS ---
PROCEDURE INFORMATION: Exam: PET/CT Skull Base to Mid-thigh Exam date and time: 09/23/2022 12:19 PM Age: 67 years old Clinical indication: Abnormal findings; Other non specific abnormal finding of lung field left; Patient HX: Left ac; Additional info: New spiculated lesion, 09/13/22 CT lung: LABS AND CLINICAL REPORTS: Glucose: 102 mg/dl Treatment strategy for malignancy (PET staging): Initial Staging (PI) TECHNIQUE: Imaging protocol: Following at least four-hour fasting and following the injection of F-18-FDG, low dose CT images were obtained. Then, PET images were obtained. Attenuation corrected images were constructed using the CT scan. Fused images of PET and CT were reviewed. The standardized uptake values (SUV) reported below are maximum values within a region of interest, expressed in gm/ml. Exam includes orbital meatal line to mid-thigh. Radiopharmaceutical: 11.06 mCi F-18 FDG (Fluorodeoxyglucose), IV. Time of imaging post radiopharmaceutical administration: 58.53 minutes Injection site: Left antecubital vein. COMPARISON: CT lung screening [id number] 09/13/2022 12:40 PM. FINDINGS: Brain: Visualized brain has normal physiologic uptake. Pharynx: No abnormal uptake. Larynx: No abnormal uptake. Lungs, pleura and trachea: The new subpleural spiculated opacity in the left upper lobe laterally with pleural thickening adjacent to the fissure is not FDG avid. Its SUV max is only 1.2, which is consistent with scarring, probably from prior infection. Similar bilateral areas of non FDG avid peripheral irregular opacities at the posteromedial right lower lobe, posteromedial left lower lobe, lateral left lower lobe and inferior lingular segment of the left upper lobe have an SUVs max of 1.2 and are also consistent with scarring. Centrilobular and paraseptal emphysema. There is a 6 mm calcified granuloma at the inferior aspect of the lateral segment of the right middle lobe. Heart: Normal physiologic uptake. Mediastinal space: Subcarinal and right hilar calcifications are consistent with remote granulomatous disease. Liver: No abnormal uptake. Gallbladder and bile ducts: No abnormal uptake. Pancreas: No abnormal uptake. Spleen: No abnormal uptake. Adrenal glands: No abnormal uptake. Kidneys and ureters: A 3.3 cm simple appearing cyst at the anterior right kidney is not FDG avid. Stomach and bowel: No abnormal uptake. Appendix: The appendix is normal in caliber without surrounding inflammation. Reproductive: Post hysterectomy. Vasculature: No abnormal uptake. Lymph nodes: No abnormal uptake. No lymphadenopathy in the head, neck, chest, abdomen, pelvis or extremities. Bones/joints: No metabolically active areas. Soft tissues: There is diffuse FDG avidity in the right rhomboid major muscle. Its SUV max is 4.0. It is consistent with a benign/physiologic etiology. PET/[facility] [id number] IMPRESSION: 1. No evidence of FDG avid malignant neoplasm. 2. Multiple bilateral irregular peripheral opacities are not FDG avid. They are consistent with scarring. Has the patient had a COVID-19 infection?
== END 2022-09-23 11:15 | disposition home or self-care (01) ==
LOC: RAD 09-25 06:14
PROVIDERS: PCP Nurse Practitioner Family; Visit Provider Internal Medicine Pulmonary Disease
DX: R91.8 Other nonspecific abnormal finding of lung field (principal)
CPT/HCPCS: 78815; A9552

== ENCOUNTER 2022-09-26 14:15 | Outpatient (CLI) | payer MEDICARE, OTHER, SELFPAY ==
--- NOTE | 2022-09-26 14:30 | XR_ITS ---
WS: [id number] DEXA (DUAL ENERGY X-RAY ABSORPTIOMETRY) Bone mineral density was performed using a [email or web address] machine. HISTORY: Z78.0 - Asymptomatic menopausal state COMPARISON: None available. Lumbar spine BMD (L1-L4): 0.818 g/cm2 T score: -3.0 Z score: -1.3 Total hip BMD: Left: 0.632 g/cm2. T score: -3.0 Z score: -1.7 Right: 0.651 g/cm2. T score: -2.8 Z score: -1.5 10 year probability of a major osteoporotic fracture is 25.6%. XR/XR DEXA axial skeleton* [id number] IMPRESSION: OSTEOPOROSIS based upon the WHO classification for females.
== END 2022-09-26 14:16 | disposition home or self-care (01) ==
LOC: RAD 14:17
PROVIDERS: PCP Nurse Practitioner Family; Visit Provider Nurse Practitioner Family
DX: Z78.0 Asymptomatic menopausal state (principal); M81.0 Age-related osteoporosis without current pathological fracture
CPT/HCPCS: 77080

== ENCOUNTER → 2022-11-23 14:29 | Outpatient (BNVA) | payer MEDICARE, OTHER, SELFPAY | PROVIDERS: PCP Nurse Practitioner Family; Visit Provider Internal Medicine Pulmonary Disease | DX: Z01.811 Encounter for preprocedural respiratory examination (principal); J44.9 Chronic obstructive pulmonary disease, unspecified; G47.34 Idiopathic sleep related nonobstructive alveolar hypoventilation; J30.9 Allergic rhinitis, unspecified; H26.9 Unspecified cataract; F17.210 Nicotine dependence, cigarettes, uncomplicated; Z99.81 Dependence on supplemental oxygen | CPT/HCPCS: 99214 ==

== ENCOUNTER 2022-11-30 11:00 | Outpatient (CLI) | payer MEDICARE, OTHER, SELFPAY ==
--- NOTE | 2022-11-30 11:15 | US_ITS ---
WS: [id number] ABDOMINAL ULTRASOUND REASON FOR EXAM: R74.8 - Abnormal levels of other serum enzymes COMPARISON: PET/CT 09/13/2022 ORDER DATE: 11/30/2022 11:12 AM TECHNIQUE: Grayscale and Doppler ultrasound examination of the abdomen. FINDINGS: Pancreas: Obscured by bowel gas Abdominal aorta and IVC: No sign of aneurysm aortic diameter 16.4 mm IVC 13.9 mm Liver: Liver measures 11.9 cm in length. No evidence of focal alteration in echotexture Gallbladder: Nondependently near the wall is a 3 to 4 mm polypoid density without shadowing. Gallblad jayson wall thickness measures 0.3 mm. Common bile duct diameter 2.4 mm Left kidney: Left kidney measures 8.8 cm x 4.2 cm x 4.2 cm. Cortical diameter 14.7 mm Right kidney: Right kidney measures 9.8 cm x 4.8 cm x 3.9 cm. Cortical diameter 12.6 mm. There is a p rominent sonolucency in the lower pole 4 cm in diameter. Renal pelvis is dilated up to approximatel y 12 mm but without any calyceal dilatation Spleen: Spleen measures 7.9 cm x 3.5 cm x 3.5 cm. Uniform echotexture US/US abdomen complete* [id number] IMPRESSION: Possible gallbladder polyp versus adherent stone Prominent extrarenal pelvis, unchanged from PET/CT 09/23/2022
== END 2022-11-30 11:01 | disposition home or self-care (01) ==
LOC: RAD 11:04
PROVIDERS: PCP Nurse Practitioner Family; Visit Provider Nurse Practitioner Family
DX: R74.8 Abnormal levels of other serum enzymes (principal)
CPT/HCPCS: 76700

== ENCOUNTER → 2023-03-05 14:31 | Outpatient (BNVA) | payer MEDICARE, OTHER, SELFPAY | PROVIDERS: PCP Nurse Practitioner Family; Visit Provider Nurse Practitioner Family | DX: J44.1 Chronic obstructive pulmonary disease with (acute) exacerbation (principal) | CPT/HCPCS: 71046 ==

== ENCOUNTER → 2023-05-29 13:48 | Outpatient (BNVA) | payer MEDICARE, OTHER, SELFPAY | PROVIDERS: PCP Nurse Practitioner Family; Visit Provider Nurse Practitioner Family | DX: M54.9 Dorsalgia, unspecified (principal); J44.1 Chronic obstructive pulmonary disease with (acute) exacerbation; M54.50 Low back pain, unspecified; Z79.899 Other long term (current) drug therapy | CPT/HCPCS: 81003 ==

== ENCOUNTER → 2023-07-25 15:10 | Outpatient (BNVA) | payer MEDICARE, OTHER, SELFPAY | PROVIDERS: PCP Nurse Practitioner Family; Visit Provider Family Medicine | DX: R52 Pain, unspecified (principal); R53.83 Other fatigue | CPT/HCPCS: 87426 ==

== ENCOUNTER → 2023-08-14 15:12 | Outpatient (BNVA) | payer MEDICARE, OTHER, SELFPAY | PROVIDERS: PCP Nurse Practitioner Family; Visit Provider Nurse Practitioner Family | DX: R35.0 Frequency of micturition (principal) | CPT/HCPCS: 81003 ==

== ENCOUNTER 2023-08-18 06:25 | Emergency (ER) | payer MEDICARE, OTHER, SELFPAY ==
[2023-08-18 06:31] VITALS: BP 119/65; PULSE 100; RESP 29; TEMP 38.3; O2SAT 96
--- NOTE | 2023-08-18 06:40 | XRR_ITS ---
PROCEDURE INFORMATION: Exam: XR Chest Exam date and time: 08/18/2023 7:08 AM Age: 68 years old Clinical indication: Shortness of breath; Additional info: Dyspnea/cough TECHNIQUE: Imaging protocol: Radiologic exam of the chest. Views: 1 view. COMPARISON: CR XR chest 2V* [id number] 03/05/2023 2:36 PM FINDINGS: Lungs: Calcified granuloma in the right lower lobe. Pleural spaces: Unremarkable. No pleural effusion. No pneumothorax. Heart/Mediastinum: Unremarkable. No cardiomegaly. Bones/joints: Unremarkable. XR/XR chest 1V portable [id number] IMPRESSION: No acute findings.
--- NOTE | 2023-08-18 06:50 | ECG_ITS ---
[facility] Test Date: 2023-08-18 Pat Name: Julia Ramires Department: Room: Gender: Female Marketing Specialist: : 1955 Requested By: Tao Cline Order Number: [id number] Carlito MD: Bassem Casas M.D. Measurements Intervals [place] Rate: 98 P: 81 AK: 128 QRS: 76 QRSD: 81 T: 71 QT: 319 QTc: 407 Interpretive Statements SINUS RHYTHM POSSIBLE RIGHT ATRIAL ENLARGEMENT [0.25mV P-WAVE] LEFT ATRIAL ENLARGEMENT [-0.15mV P-WAVE IN V1/V2] MODERATE ST DEPRESSION [0.05+ mV ST DEPRESSION] Compared to ECG 01/11/2020 21:24:49 ST (T wave) deviation now present T-wave abnormality no longer present Electronically Signed On 08-19-2023 8:37:09 BELT BACK OPERATOR by Bassem Casas M.D. [id number]
--- NOTE | 2023-08-18 06:52 | W.ED.SOB ---
HPI - SOB/Dyspnea General: Chief Complaint: Shortness of Breath/Dyspnea Stated Complaint: RESP. DISTRESS Time Seen by Provider: 08/18/23 06:27 Source: patient Mode of arrival: EMS History of Present Illness: HPI Narrative: 68-year-old female presents emergency room complaining shortness of breath via EMS. She was diagnosed with COVID 1 week ago. She has a history of COPD and at baseline uses 2 L by nasal cannula she still satting in the mid to low 90s at her baseline oxygen use. Her last use of a nebulizer was yesterday morning she has not had any fever sweats or chills. No vomiting no diarrhea no history of DVT or PE. Has a temp at home of up to 101. No chest pain or discomfort at this time. MD elicited complaint: shortness of breath and cough Pertinent past history: COPD Onset (ago): day(s) Context: recent illness Timing: constant Severity: moderate Exacerbating factors: exertion and coughing Relieving factors: oxygen, rest and bronchodilators Known history of: COPD Associated symptoms: Reports chest congestion, cough, fever(s) and lightheadedness; Deny abdominal pain, chest pain, diaphoresis, dizziness, extremity pain, hemoptysis, myalgias, nausea, orthopnea, palpitations, paresthesias, polydipsia, polyuria, rash, sense of impending doom, syncope or vomiting Treatment prior to arrival: oxygen and bronchodilator Related Data: Home oxygen amount: 2 liters Review of Systems Const: Reports: fever(s); Denies: diaphoresis Card: Reports: lightheadedness; Denies: chest pain, palpitations, syncope or orthopnea Resp: Reports: dyspnea, non-productive cough, wheezing and chest congestion; Denies: hemoptysis GI: Denies: abdominal pain, nausea or vomiting : Denies: dysuria, urinary frequency or urinary urgency Musc: Denies: extremity pain Skin/Breast: Denies: rash Neuro: Denies: dizziness Endo: Denies: polyuria or polydipsia PFSH ED PFSH: Medical History Chronic neck pain Overactive bladder Vitamin D deficiency Shortness of breath Hyperlipidemia GERD (gastroesophageal reflux disease) Depression H/O reduction of closed dislocation Left wrist dislocation COPD (chronic obstructive pulmonary disease) Surgical History S/P carpal tunnel release S/P hysterectomy No significant past surgical history Family History Denies family history of Diabetes Clotting disorder Dementia Hyperlipidemia Family history of premature coronary artery disease Social History Smoking and tobacco/nicotine status: current every day tobacco/nicotine user cigarettes Packs smoked per day: 1 Years cigarettes smoked: 56 [ Other cigarette details: Hx of 1 PPD x 55 Years, started at age 18 ] Quit status (tobacco/nicotine): considering quitting Second hand smoke exposure: No Alcohol intake: never Substance/Drug Use: never Lives independently: Yes Household members: spouse and family Housing: House Marital status: Current occupational status: retired Do you think of yourself as: Straight/Heterosexual Current gender identity: Female Physical Exam Const: GENERAL APPEARANCE: cooperative ORIENTATION/CONSCIOUSNESS: Yes awake, Yes oriented to person, Yes oriented to place and Yes oriented to time HENMT: COMMON NORMALS: normocephalic, atraumatic and hearing grossly normal bilaterally HEAD & SCALP: normocephalic and atraumatic Resp: COMMON NORMALS: normal respiratory effort, No retractions and No use of accessory muscles AUSCULTATION: rhonchi and wheezes Cardio: COMMON NORMALS: regular rate, regular rhythm and No murmurs present (Cardio) RATE: regular rate RHYTHM: regular rhythm GI: COMMON NORMALS: Soft to palpation and No hepatosplenomegaly present AUSCULTATION: Yes normoactive bowel sounds PALPATION: Yes Soft to palpation, No Tenderness to palpation present (GI), No Guarding due to palpation present (GI) and Yes No hepatosplenomegaly present : COMMON NORMALS: Yes no CVA tenderness BLADDER/KIDNEY EXAM: Yes no CVA tenderness Back/Pelvis: COMMON NORMALS: no CVA tenderness Extremity: COMMON NORMALS: normal to inspection, capillary refill normal, no clubbing, cyanosis or edema, no calf tenderness and no pedal edema Neuro: SENSORIUM/ORIENTATION: Yes oriented to person, Yes oriented to place and Yes oriented to time Skin: COMMON NORMALS: no rashes or lesions noted GENERAL SKIN EXAM: no rashes or lesions noted Course Vital Signs: Vital signs: Vital Signs Temperature 101 F H 08/18/23 06:31 Pulse Rate 90 08/18/23 09:02 Respiratory Rate 18 08/18/23 09:02 Blood Pressure 119/65 08/18/23 06:31 Pulse Oximetry 94 08/18/23 09:02 Oxygen Delivery Me thod Nasal Cannula 08/18/23 09:02 Oxygen Flow Rate 2 08/18/23 07:24 MDM - SOB/Dyspnea Medical Decision Making Patient maintaining oxygen sats on her baseline oxygen chest x-ray unremarkable. She is experiencing usual course of COVID at this point. Think she may benefit from adding dexamethasone because of underlying COPD use albuterol ipratropium bromide nebulizers every 4 hours while awake. Follow-up with your primary care doctor. There is no evidence of secondary infections at this time. Maintaining oxygen sats without significant tachycardia at this point no evidence of PE. Differential Diagnosis Likely acute exacerbation of chronic obstructive airways disease, congestive heart failure, community acquired pneumonia, asthma with exacerbation and pulmonary embolism Medical Records I reviewed the patient's medical records. Lab Data I reviewed the patient's lab results. 08/18/23 06:47 08/18/23 06:47 Labs/Radiology: Radiology Impressions Chest X-Ray 08/18/23 06:40 IMPRESSION: No acute findings. Laboratory Results WBC 5.46 10^3/uL (3.29-11.43) 08/18/23 06:47 RBC 4.15 10^6/uL (3.85-5.65) 08/18/23 06:47 Hgb 12.70 g/dL (11.27-16.99) 08/18/23 06:47 Hct 40.6 % (36-47) 08/18/23 06:47 MCV 97.8 fl (85-98) 08/18/23 06:47 MCH 30.6 pg (27-33) 08/18/23 06:47 MCHC 31.3 g/dL (30-55) 08/18/23 06:47 RDW 13.6 % (12.1-15.1) 08/18/23 06:47 Plt Count 159 10^3/cmm (157-399) 08/18/23 06:47 MPV 10.1 fL (7.4-10.4) 08/18/23 06:47 Neut % (Auto) 64.2 % 08/18/23 06:47 Lymph % (Auto) 28.0 % 08/18/23 06:47 [place] % (Auto) 7.1 % 08/18/23 06:47 Eos % (Auto) 0.0 % 08/18/23 06:47 Baso % (Auto) 0.2 % 08/18/23 06:47 Neut # (Auto) 3.50 10^3/uL (1.8-7.7) 08/18/23 06:47 Lymph # (Auto) 1.5 10^3/uL (0.8-4.8) 08/18/23 06:47 [place] # (Auto) 0.4 10^3/uL (0.2-0.9) 08/18/23 06:47 Eos # (Auto) 0.0 10^3/uL (0.0-0.8) 08/18/23 06:47 Baso # (Auto) 0.0 10^3/uL (0.0-0.1) 08/18/23 06:47 Nucleated RBC % (auto) 0 % 08/18/23 06:47 Nucleated RBCs # 0.0 /100WBC 08/18/23 06:47 Specimen Type Arterial 08/18/23 07:15 Sample Site Brachial, right 08/18/23 07:15 ABG pH 7.44 (7.35-7.45) 08/18/23 07:15 ABG pCO2 41.0 mmHg (35-45) 08/18/23 07:15 ABG pO2 74.7 mmHg (80.0-100.0) L 08/18/23 07:15 ABG PO2/FiO2 Ratio 0 08/18/23 07:15 ABG HCO3 27.7 mmol/L (22-26) H 08/18/23 07:15 ABG O2 Saturation 96.2 08/18/23 07:15 ABG Base Excess 3.2 mmol/L (-2.0-2.0) H 08/18/23 07:15 Jose Test N/a 08/18/23 07:15 A-a O2 Gradient 9.5 mmHg (5-10) 08/18/23 07:15 Hematocrit 38.5 % (37-47) 08/18/23 07:15 Hgb O2 Saturation 94.6 % (95-100) L 08/18/23 07:15 Carboxyhemoglobin 1.1 %THgb (0.4-20.1) 08/18/23 07:15 Methemoglobin 0.5 % (0.4-1.5) 08/18/23 07:15 Total Hemoglobin 12.6 g/dL (12-16) 08/18/23 07:15 Sodium 137.0 mmol/L (131-143) 08/18/23 07:15 Potassium 3.7 mmol/L (3.5-5.0) 08/18/23 07:15 Glucose 89.0 mg/dL (70-115) 08/18/23 07:15 Ionized Calcium 1.2 mmol/L (1.1-1.4) 08/18/23 07:15 O2 Delivery Device Nc 08/18/23 07:15 O2 Liters/Min 2.0 % 08/18/23 07:15 FiO2 28.0 % 08/18/23 07:15 Computer Systems Software Engineer ID Amh 08/18/23 07:15 Sodium 138 mmol/L (136-145) 08/18/23 06:47 Potassium 3.7 mmol/L (3.5-5.1) 08/18/23 06:47 Chloride 102 mmol/L (98-107) 08/18/23 06:47 Carbon Dioxide 24 mmol/L (22-29) 08/18/23 06:47 Anion Gap 15.7 (5-19) 08/18/23 06:47 BUN 9 mg/dL (8-23) 08/18/23 06:47 Creatinine 0.9 mg/dL (0.5-0.9) 08/18/23 06:47 GFR Calculation 62.6 mL/min (90-130) L 08/18/23 06:47 Glucose 92 mg/dL (65-115) 08/18/23 06:47 Calculated Osmolality 284 mOsm/kg (285-295) L 08/18/23 06:47 Calcium 8.7 mg/dL (8.5-10.5) 08/18/23 06:47 Total Bilirubin 0.4 mg/dL (0.15-1.2) 08/18/23 06:47 AST 18 U/L (0-32) 08/18/23 06:47 ALT 10 U/L (0-33) 08/18/23 06:47 Alkaline Phosphatase 117 U/L (35-105) H 08/18/23 06:47 Total Protein 6.4 g/dL (6.6-8.7) L 08/18/23 06:47 Albumin 3.5 g/dL (3.5-5.2) 08/18/23 06:47 Globulin 2.9 g/dL (1.3-4.6) 08/18/23 06:47 All radiology interpretation(s) finalized by discharge Discharge Plan Discharge Patient Disposition: Home Clinical Impression: COVID-19 COPD (chronic obstructive pulmonary disease) Qualifiers: COPD type: unspecified COPD Qualified Code(s): J44.9 - Chronic obstructive pulmonary disease, unspecified Condition: Stable Prescriptions: New ipratropium-albuterol 0.5 mg-3 mg(2.5 mg base)/3 mL solution for nebulization 3 ml inhalation Q4H PRN (Reason: shortness of breath or wheezing) Qty: 90 0RF dexamethasone 6 mg tablet 6 mg PO DAILY Qty: 7 0RF No Action ergocalciferol (vitamin D2) 50 mcg (2,000 unit) capsule 50 mcg PO DAILY ibuprofen 800 mg tablet 800 mg PO Q8H Qty: 30 0RF azithromycin 250 mg tablet See Rx Instructions PO .COMPLEX Qty: 6 0RF Rx Instructions: For 250 mg dose pack: take 500 mg today (day 1), then 250 mg for 4 days (days 2-5) PO methylprednisolone [Medrol (Sai)] 4 mg tablets,dose pack See Rx Instructions PO PER PKG DIR Qty: 21 0RF Rx Instructions: PO PER PKG DIR Prolia 60 mg/mL syringe 60 mg SUBCUT .q 6mo Qty: 1 0RF albuterol sulfate 90 mcg/actuation HFA aerosol inhaler 1 inh INHALATION QID PRN (Reason: Bronchodilation) Qty: 8.5 6RF ipratropium-albuterol 0.5 mg-3 mg(2.5 mg base)/3 mL solution for nebulization 3 ml inhalation Q6H PRN (Reason: shortness of breath or wheezing) Qty: 180 6RF azelastine 137 mcg (0.1 %) aerosol,spray 1 spray intranasal BID Qty: 30 6RF Rx Instructions: administer into each nostril montelukast 10 mg tablet 10 mg PO DAILY Qty: 90 1RF mirtazapine 30 mg tablet,disintegrating 30 mg PO DAILY Qty: 90 1RF duloxetine [Cymbalta] 60 mg capsule,delayed release(DR/EC) 60 mg PO DAILY Qty: 90 1RF Breztri Aerosphere 160-9-4.8 mcg/actuation HFA aerosol inhaler 2 inh inhalation BID Qty: 32.1 1RF Discharge Orders: Discharge ED (Routine); Ordered 08/18/23 Ordered By: Tao Virk Referrals: Michelle Garcia, CLAUDIO [Primary Care Provider] - Discharge Diet: Usual diet Discharge Activity: Increase activity as tolerated Patient Instructions: COVID-19 (Coronavirus Disease 2019) (ED), Opioid Safety, Pain Management Activity Restrictions/Additional Instructions: Thank you for choosing [facility] for your healthcare needs today. Please realize this is an emergency room and that we are providing you with a medical screening exam and this may not be complete and all inclusive of all the testing and or work up that you may need to determine your ailment or severity of your illness. It is very important that you follow up as instructed or that you return to the Emergency Department should you have concerns or if your condition changes or worsens in any way. Continue your regular supplemental oxygen we recommend that you start oral steroid you are given a dose of steroids here. Use albuterol ipratropium bromide nebulizers every 4 hours while awake as needed. Return if you have further problems. Coding Level of Care Code ED Grinder Setup Operator for Juliette Edwards
[2023-08-18 06:59] LABS: Basophils % 0.2 %; Hematocrit 40.6 % (36-47); Lymphocytes # 1.5 10^3/uL (0.8-4.8); Mean Corpuscular HGB Conc 31.3 g/dL (30-55); Mean Corpuscular Hemoglobin 30.6 pg (27-33); Mean Corpuscular Volume 97.8 fl (85-98); Mean Platelet Volume 10.1 fL (7.4-10.4); Monocytes # 0.4 10^3/uL (0.2-0.9); Monocytes % 7.1 %; Neutrophils % 64.2 %; Nucleated Red Blood Cells % 0 %; Platelet Count 159 10^3/cmm (157-399); Red Blood Count 4.15 10^6/uL (3.85-5.65); Red Cell Distribution Width 13.6 % (12.1-15.1); White Blood Count 5.46 10^3/uL (3.29-11.43)
[2023-08-18] MEDS: dexamethasone 10 mg/mL INJ IM (07:11)
[2023-08-18 07:13] VITALS: PULSE 99; RESP 18; O2SAT 94
[2023-08-18 07:15] VITALS: PULSE 99; RESP 22; O2SAT 94
[2023-08-18 07:20] LABS: Alanine Aminotransferase 10 U/L (0-33); Albumin Level 3.5 g/dL (3.5-5.2); Alkaline Phosphatase 117 U/L (35-105); Anion Gap 15.7 (5-19); Aspartate Amino Transferase 18 U/L (0-32); Blood Urea Nitrogen 9 mg/dL (8-23); Calcium 8.7 mg/dL (8.5-10.5); Carbon Dioxide 24 mmol/L (22-29); Chloride 102 mmol/L (98-107); Globulin 2.9 g/dL (1.3-4.6); Glomerular Filtration Rate 62.6 mL/min (90-130); Glucose 92 mg/dL (65-115); Osmolality Calculated 284 mOsm/kg (285-295); Potassium 3.7 mmol/L (3.5-5.1); Sodium 138 mmol/L (136-145); Total Bilirubin 0.4 mg/dL (0.15-1.2); Total Protein 6.4 g/dL (6.6-8.7)
[2023-08-18] MEDS: ipratropium-albuterol 3 mL Neb INHALATION (07:22)
[2023-08-18 07:24] VITALS: PULSE 94; RESP 22; O2SAT 94
[2023-08-18 07:26] LABS: ABG PH Result 7.44 (7.35-7.45); Alveolar-Arterial Oxygen Gradi 9.5 mmHg (5-10); Arterial Blood Gas Hematocrit 38.5 % (37-47); Base Excess ABG 3.2 mmol/L (-2.0-2.0); Blood Gas Operator Identificat AMH; Blood Gas Sample Site Brachial, right; Blood Gas Sample Type Arterial; Carboxyhemoglobin 1.1 %THgb (0.4-20.1); HCO3 ABG 27.7 mmol/L (22-26); HGB O2 Sat 94.6 % (95-100); Ionized Calcium Level - ABG 1.2 mmol/L (1.1-1.4); Methemoglobin 0.5 % (0.4-1.5); Oxygen Device NC; Oxygen Saturation ABG 96.2; PO2 ABG 74.7 mmHg (80.0-100.0); PO2 FiO2 Ratio Arterial Blood 0; Potassium Level - ABG 3.7 mmol/L (3.5-5.0); Total Hemoglobin 12.6 g/dL (12-16)
[2023-08-18 09:02] VITALS: PULSE 90; RESP 18; O2SAT 94
== END 2023-08-18 10:27 | disposition home or self-care (01) ==
PROVIDERS: Emergency Provider Family Medicine; PCP Nurse Practitioner Family
DX: U07.1 COVID-19 (principal); J44.9 Chronic obstructive pulmonary disease, unspecified; F17.210 Nicotine dependence, cigarettes, uncomplicated; Z99.81 Dependence on supplemental oxygen
CPT/HCPCS: 36415; 36600; 71045; 80051; 80053; 82330; 82805; 85025; 87040; 93005; 94640; 96372; 99285; J1100

== ENCOUNTER → 2023-08-23 13:33 | Outpatient (BNVA) | payer MEDICARE, OTHER, SELFPAY | PROVIDERS: PCP Nurse Practitioner Family; Visit Provider Internal Medicine Pulmonary Disease | DX: J44.9 Chronic obstructive pulmonary disease, unspecified (principal); G47.34 Idiopathic sleep related nonobstructive alveolar hypoventilation; J30.9 Allergic rhinitis, unspecified; F17.210 Nicotine dependence, cigarettes, uncomplicated; Z79.51 Long term (current) use of inhaled steroids | CPT/HCPCS: 99214 ==

== ENCOUNTER 2023-09-14 09:29 | Outpatient (CLI) | payer MEDICARE, OTHER, SELFPAY ==
--- NOTE | 2023-09-14 10:00 | CT_ITS ---
WS: [id number] LDCT LUNG CANCER SCREENING HISTORY: Cancer screen TECHNIQUE: Axial imaging performed from the apices to 1 cm below the costophrenic angles. Coronal and sagittal reformats are submitted with axial MIP series. All CT scans at [facility] use at least one of these dose optimization techniques: automated exposure control; mA and/or kV adjustment per patient size (includes targeted exams where dose is matched to clinical indication); or iterativ e reconstruction. DLP: 46.51 mGy.cm DIvol: Mean CTDIvol: 0.70 (mGy) COMPARISON: 09/13/2022 Diagnostic quality: Satisfactory Lungs: Hyperinflated lungs from chronic emphysema. Biapical pleural thickening and scarring. The area s of pulmonary fibrosis at the lung bases were negative on recent PET/CT. There is a new opacificatio n at the RIGHT lung base, image 270 series 4. Suspect this is probably an area of atelectasis. Heart: Normal size heart with no pericardial effusion.. Other findings: Mild atherosclerosis aorta. No mediastinal or hilar adenopathy. Small hiatal hernia. No adrenal mass. Low-attenuation mass associated with the upper pole of the RIGHT kidney was noted to be as negative on recent PET/CT. Probably representing a cyst. Thoracolumbar scoliosis. IMPRESSION: CT/CT lung screening [id number] LUNG-RADS: 3-Probably Benign FOLLOW UP: 6 Month LDCT OTHER FINDINGS (S MODIFIER): None.
== END 2023-09-14 09:30 | disposition home or self-care (01) ==
LOC: RAD 09:29
PROVIDERS: PCP Nurse Practitioner Family; Visit Provider Internal Medicine Pulmonary Disease
DX: Z12.2 Encounter for screening for malignant neoplasm of respiratory organs (principal); F17.210 Nicotine dependence, cigarettes, uncomplicated
CPT/HCPCS: 71271

== ENCOUNTER → 2023-10-31 10:43 | Outpatient (BNVA) | payer MEDICARE, OTHER, SELFPAY | PROVIDERS: PCP Nurse Practitioner Family; Visit Provider Nurse Practitioner Family | DX: R50.9 Fever, unspecified (principal); J44.9 Chronic obstructive pulmonary disease, unspecified | CPT/HCPCS: 71046; 87400 ==

== ENCOUNTER → 2023-11-19 16:16 | Outpatient (BNVA) | payer MEDICARE, OTHER, SELFPAY | PROVIDERS: PCP Nurse Practitioner Family; Visit Provider Nurse Practitioner Family | DX: R50.9 Fever, unspecified (principal) | CPT/HCPCS: 87400 ==

== ENCOUNTER 2023-12-12 00:01 | Emergency (ER) | payer MEDICARE, OTHER, SELFPAY ==
[2023-12-12] VITALS (8 sets, daily range): BP systolic 104–119; BP diastolic 44–64; PULSE 73–96; RESP 16–26; TEMP 36.7; O2SAT 92–97; BMI 28.3
--- NOTE | 2023-12-12 00:15 | XRR_ITS ---
PROCEDURE INFORMATION: Exam: XR Chest Exam date and time: 12/12/2023 12:21 AM Age: 68 years old Clinical indication: Shortness of breath; Additional info: Dyspnea copd TECHNIQUE: Imaging protocol: Radiologic exam of the chest. Views: 1 view. COMPARISON: CR XR chest 2V* [id number] 10/31/2023 11:01 AM FINDINGS: Lungs: Bibasilar right greater than left airspace infiltrates. Emphysematous changes. Pleural spaces: Small right and trace left pleural effusions. Heart/Mediastinum: Cardiomegaly. Bones/joints: Unremarkable. XR/XR chest 1V portable [id number] IMPRESSION: 1. Small right and trace left pleural effusions. 2. Bibasilar right greater and left airspace infiltrates. 3. Cardiomegaly. 4. Emphysematous changes.
[2023-12-12 00:54] LABS: Basophils % 0.1 %; Eosinophils % 0.1 %; Hematocrit 35.6 % (36-47); Mean Corpuscular HGB Conc 32.3 g/dL (30-55); Mean Corpuscular Hemoglobin 30.3 pg (27-33); Mean Corpuscular Volume 93.9 fl (85-98); Mean Platelet Volume 9.3 fL (7.4-10.4); Monocytes # 0.7 10^3/uL (0.2-0.9); Monocytes % 5.1 %; Neutrophils # 12.21 10^3/uL (1.8-7.7); Neutrophils % 86.7 %; Nucleated Red Blood Cells % 0 %; Platelet Count 267 10^3/cmm (157-399); Red Blood Count 3.79 10^6/uL (3.85-5.65); Red Cell Distribution Width 13.8 % (12.1-15.1); White Blood Count 14.08 10^3/uL (3.29-11.43)
[2023-12-12 00:55] LABS: ABG PCO2 38.7 mmHg (35-45); ABG PH Result 7.41 (7.35-7.45); Alveolar-Arterial Oxygen Gradi 10.7 mmHg (5-10); Arterial Blood Gas Hematocrit 35.9 % (37-47); Base Excess ABG -0.1 mmol/L (-2.0-2.0); Blood Gas Allen Test Pos; Blood Gas Sample Site Brachial, right; Blood Gas Sample Type Arterial; Carboxyhemoglobin 1.3 %THgb (0.4-20.1); HCO3 ABG 24.4 mmol/L (22-26); HGB O2 Sat 92.1 % (95-100); Ionized Calcium Level - ABG 1.2 mmol/L (1.1-1.4); Methemoglobin 0.6 % (0.4-1.5); Oxygen Device NC; Oxygen Saturation ABG 93.8; PO2 FiO2 Ratio Arterial Blood 0; Potassium Level - ABG 3.1 mmol/L (3.5-5.0); Total Hemoglobin 11.7 g/dL (12-16)
--- NOTE | 2023-12-12 00:55 | ED_ITS ---
HPI - SOB/Dyspnea 2 General: Chief Complaint: Shortness of Breath/Dyspnea Stated Complaint: SOB Time Seen by Provider: 12/12/23 00:15 History of Present Illness: HPI Narrative: Patient presents to the ER with complaints of worsening shortness of breath. Patient was just in the hospital in [place] for a week for influenza A. Patient was discharged on Tamiflu and prednisone. Patient has been going downhill ever since then. Patient saw her family practice physician within the last day or 2 was given a shot of Rocephin and was told if she worsens to come to the ER for further evaluation. Patient is also complaining of right chest pain especially when she takes a big deep breath. Patient has COPD and normally wears 2 L of oxygen at all times. Review of Systems 2 General: Reports: 10 or more systems reviewed and unremarkable except in HPI and below PFSH ED 2 PFSH: Medical History Chronic neck pain Overactive bladder Vitamin D deficiency Shortness of breath Hyperlipidemia GERD (gastroesophageal reflux disease) Depression H/O reduction of closed dislocation Left wrist dislocation COPD (chronic obstructive pulmonary disease) Surgical History S/P carpal tunnel release S/P hysterectomy No significant past surgical history Family History Denies family history of Diabetes Clotting disorder Dementia Hyperlipidemia Family history of premature coronary artery disease Social History Smoking and tobacco/nicotine status: current every day tobacco/nicotine user cigarettes Packs smoked per day: 1 Years cigarettes smoked: 56 [ Other cigarette details: Hx of 1 PPD x 55 Years, started at age 18 ] Quit status (tobacco/nicotine): considering quitting Second hand smoke exposure: No Alcohol intake: never Substance/Drug Use: never Lives independently: Yes Household members: spouse and family Housing: House Marital status: Current occupational status: retired Do you think of yourself as: Straight/Heterosexual Current gender identity: Female Physical Exam 2 Const: COMMON NORMALS: no acute distress, average body habitus, patient oriented x3, no limitations, healthy appearing, alert and well nourished HENMT: COMMON NORMALS: normocephalic, atraumatic, hearing grossly normal bilaterally, external ears normal, Normal external nose present, moist oral mucous membranes and oropharynx normal HEAD & SCALP: normocephalic and atraumatic NOSE: Normal external nose present EXTERNAL EAR: Yes external ears normal Neck/C-Spine: COMMON NORMALS: no JVD Chest: COMMONS NORMALS: normal inspection of the chest and normal palpation of entire chest wall Resp: COMMON NORMALS: normal respiratory effort, No retractions, No use of accessory muscles and clear to auscultation bilaterally AUSCULTATION: clear to auscultation bilaterally Cardio: COMMON NORMALS: no JVD, regular rate, regular rhythm, S1 normal heart sound present, S2 normal heart sound present, No gallops present (Cardio), No clicks present (Cardio), No murmurs present (Cardio) and No rub (Cardio) R ATE: regular rate RHYTHM: regular rhythm HEART SOUNDS: S1 normal heart sound present and S2 normal heart sound present GI: COMMON NORMALS: Normal to inspection, nondistended, normoactive bowel sounds present, Soft to palpation, non-tender, No hepatosplenomegaly present and no masses PALPATION: Yes Soft to palpation and Yes No hepatosplenomegaly present Neuro: COMMON NORMALS: patient oriented x3 SENSORIUM/ORIENTATION: Yes alert Course 2 Vital Signs: Vital signs: Vital Signs Temperature 98.1 F 12/12/23 00:02 Pulse Rate 85 12/12/23 02:07 Respiratory Rate 16 12/12/23 02:07 Blood Pressure 104/44 12/12/23 02:07 Pulse Oximetry 95 12/12/23 02:07 Oxygen Delivery Me thod Nasal Cannula 12/12/23 02:07 Oxygen Flow Rate 4 12/12/23 02:07 MDM - SOB/Dyspnea Medical Decision Making Upon going back into the patient's room to discuss lab work patient was soundly sleeping in no acute distress. I woke her up and I discussed the results with the patient. Patient has Levaquin at home that the primary care doctor sent in as well as Tamiflu and prednisone she can finish. Patient was notified her x- ray showed bibasilar infiltrates otherwise her lab work was essentially unremarkable other than low potassium. Potassium was replaced here in ER patient was given an additional dose of Zosyn. The EMS gave her 125 mg of Solu- Medrol. Patient be discharged home Differential Diagnosis Likely acute exacerbation of chronic obstructive airways disease and community acquired pneumonia; Unlikely congestive heart failure, asthma with exacerbation or pulmonary embolism Medical Records I reviewed the patient's medical records. Lab Data I reviewed the patient's lab results. 12/12/23 00:45 12/12/23 00:45 Labs/Radiology: Radiology Impressions Chest X-Ray 12/12/23 00:15 IMPRESSION: 1. Small right and trace left pleural effusions. 2. Bibasilar right greater and left airspace infiltrates. 3. Cardiomegaly. 4. Emphysematous changes. Laboratory Results WBC 14.08 10^3/uL (3.29-11.43) H 12/12/23 00:45 RBC 3.79 10^6/uL (3.85-5.65) L 12/12/23 00:45 Hgb 11.50 g/dL (11.27-16.99) 12/12/23 00:45 Hct 35.6 % (36-47) L 12/12/23 00:45 MCV 93.9 fl (85-98) 12/12/23 00:45 MCH 30.3 pg (27-33) 12/12/23 00:45 MCHC 32.3 g/dL (30-55) 12/12/23 00:45 RDW 13.8 % (12.1-15.1) 12/12/23 00:45 Plt Count 267 10^3/cmm (157-399) 12/12/23 00:45 MPV 9.3 fL (7.4-10.4) 12/12/23 00:45 Neut % (Auto) 86.7 % 12/12/23 00:45 Lymph % (Auto) 7.0 % 12/12/23 00:45 [place] % (Auto) 5.1 % 12/12/23 00:45 Eos % (Auto) 0.1 % 12/12/23 00:45 Baso % (Auto) 0.1 % 12/12/23 00:45 Neut # (Auto) 12.21 10^3/uL (1.8-7.7) H 12/12/23 00:45 Lymph # (Auto) 1.0 10^3/uL (0.8-4.8) 12/12/23 00:45 [place] # (Auto) 0.7 10^3/uL (0.2-0.9) 12/12/23 00:45 Eos # (Auto) 0.0 10^3/uL (0.0-0.8) 12/12/23 00:45 Baso # (Auto) 0.0 10^3/uL (0.0-0.1) 12/12/23 00:45 Nucleated RBC % (auto) 0 % 12/12/23 00:45 Nucleated RBCs # 0.0 /100WBC 12/12/23 00:45 Specimen Type Arterial 12/12/23 00:50 Sample Site Brachial, right 04 00:50 ABG pH 7.41 (7.35-7.45) 12/12/23 00:50 ABG pCO2 38.7 mmHg (35-45) 12/12/23 00:50 ABG pO2 67.0 mmHg (80.0-100.0) L 12/12/23 00:50 ABG PO2/FiO2 Ratio 0 12/12/23 00:50 ABG HCO3 24.4 mmol/L (22-26) 12/12/23 00:50 ABG O2 Saturation 93.8 12/12/23 00:50 ABG Base Excess -0.1 mmol/L (-2.0-2.0) 12/12/23 00:50 Jose Test Pos 12/12/23 00:50 A-a O2 Gradient 10.7 mmHg (5-10) H 12/12/23 00:50 Hematocrit 35.9 % (37-47) L 12/12/23 00:50 Hgb O2 Saturation 92.1 % (95-100) L 12/12/23 00:50 Carboxyhemoglobin 1.3 %THgb (0.4-20.1) 12/12/23 00:50 Methemoglobin 0.6 % (0.4-1.5) 12/12/23 00:50 Total Hemoglobin 11.7 g/dL (12-16) L 12/12/23 00:50 Sodium 134.0 mmol/L (131-143) 12/12/23 00:50 Potassium 3.1 mmol/L (3.5-5.0) L 12/12/23 00:50 Glucose 99.0 mg/dL (70-115) 12/12/23 00:50 Ionized Calcium 1.2 mmol/L (1.1-1.4) 12/12/23 00:50 O2 Delivery Device Nc 12/12/23 00:50 O2 Liters/Min 2.0 % 12/12/23 00:50 FiO2 28.0 % 12/12/23 00:50 General Duty Nurse ID [email or web address] 04 00:50 Sodium 133 mmol/L (136-145) L 12/12/23 00:45 Potassium 3.2 mmol/L (3.5-5.1) L 12/12/23 00:45 Chloride 98 mmol/L (98-107) 12/12/23 00:45 Carbon Dioxide 22 mmol/L (22-29) 12/12/23 00:45 Anion Gap 16.2 (5-19) 12/12/23 00:45 BUN 6 mg/dL (8-23) L 12/12/23 00:45 Creatinine 0.7 mg/dL (0.5-0.9) 12/12/23 00:45 GFR Calculation 83.7 mL/min (90-130) L 12/12/23 00:45 Glucose 105 mg/dL (65-115) 12/12/23 00:45 Calculated Osmolality 274 mOsm/kg (285-295) L 12/12/23 00:45 Lactic Acid 1.1 mmol/L (0.5-2.2) 12/12/23 00:45 Calcium 8.5 mg/dL (8.5-10.5) 12/12/23 00:45 Magnesium 1.9 mg/dL (1.7-2.3) 12/12/23 00:45 Total Bilirubin 0.5 mg/dL (0.15-1.2) 12/12/23 00:45 AST 10 U/L (0-32) 12/12/23 00:45 ALT 10 U/L (0-33) 12/12/23 00:45 Alkaline Phosphatase 108 U/L (35-105) H 12/12/23 00:45 Total Protein 6.1 g/dL (6.6-8.7) L 12/12/23 00:45 Albumin 3.2 g/dL (3.5-5.2) L 12/12/23 00:45 Globulin 2.9 g/dL (1.3-4.6) 12/12/23 00:45 Procalcitonin 0.14 ng/mL (0-0.5) 12/12/23 00:45 All radiology interpretation(s) finalized by discharge Discharge Plan Discharge Patient Disposition: Home Clinical Impression: Community acquired pneumonia Qualifiers: Laterality: unspecified laterality Qualified Code(s): J18.9 - Pneumonia, unspecified organism Condition: Stable Prescriptions: No Action ergocalciferol (vitamin D2) 50 mcg (2,000 unit) capsule 50 mcg PO DAILY ibuprofen 800 mg tablet 800 mg PO Q8H Qty: 30 0RF oseltamivir [Tamiflu] 75 mg capsule 75 mg PO BID 5 Days Qty: 10 0RF ipratropium-albuterol 0.5 mg-3 mg(2.5 mg base)/3 mL solution for nebulization 3 ml inhalation Q4H PRN (Reason: shortness of breath or wheezing) Qty: 90 2RF azithromycin 250 mg tablet See Rx Instructions PO .COMPLEX Qty: 6 0RF Rx Instructions: For 250 mg dose pack: take 500 mg today (day 1), then 250 mg for 4 days (days 2-5) PO (DME) hospital bed See Rx Instructions .Route .MEDSUPPLY Qty: 1 0RF Rx Instructions: As directed levofloxacin 750 mg tablet 750 mg PO DAILY Qty: 7 0RF Prolia 60 mg/mL syringe 60 mg SUBCUT .q 6mo Qty: 1 0RF azelastine 137 mcg (0.1 %) aerosol,spray 1 spray intranasal BID Qty: 30 6RF Rx Instructions: administer into each nostril montelukast 10 mg tablet 10 mg PO DAILY Qty: 90 1RF mirtazapine 30 mg tablet,disintegrating 30 mg PO DAILY Qty: 90 1RF duloxetine [Cymbalta] 60 mg capsule,delayed release(DR/EC) 60 mg PO DAILY Qty: 90 1RF Breztri Aerosphere 160-9-4.8 mcg/actuation HFA aerosol inhaler 2 inh inhalation BID Qty: 32.1 1RF albuterol sulfate 90 mcg/actuation HFA aerosol inhaler 1 inh INHALATION QID PRN (Reason: shortness of breath or wheezing) Qty: 8.5 2RF albuterol sulfate 2.5 mg /3 mL (0.083 %) solution for nebulization 2.5 mg inhalation QID Qty: 180 1RF dexamethasone 6 mg tablet 6 mg PO DAILY Qty: 7 0RF Discharge Orders: Discharge ED (Routine); Ordered 12/12/23 Ordered By: Yoel Telles Referrals: Michelle Garcia FNP [Primary Care Provider] - 1 week Patient Instructions: Community Acquired Pneumonia (ED) Activity Restrictions/Additional Instructions: Please use all medicine as directed. Please continue using your prednisone and Tamiflu as directed and pick your Levaquin up at the pharmacy and take it as directed. Please follow-up with your family practice doc within the next 7 days for further evaluation and treatment as needed. Coding Level of Care Code ED [employer] Helper for Juliette Edwards
[2023-12-12 01:09] LABS: Alanine Aminotransferase 10 U/L (0-33); Albumin Level 3.2 g/dL (3.5-5.2); Alkaline Phosphatase 108 U/L (35-105); Anion Gap 16.2 (5-19); Aspartate Amino Transferase 10 U/L (0-32); Blood Urea Nitrogen 6 mg/dL (8-23); Calcium 8.5 mg/dL (8.5-10.5); Carbon Dioxide 22 mmol/L (22-29); Chloride 98 mmol/L (98-107); Creatinine Clr Calc Pharmacy 71.0294; Globulin 2.9 g/dL (1.3-4.6); Glomerular Filtration Rate 83.7 mL/min (90-130); Glucose 105 mg/dL (65-115); Osmolality Calculated 274 mOsm/kg (285-295); Potassium 3.2 mmol/L (3.5-5.1); Sodium 133 mmol/L (136-145); Total Bilirubin 0.5 mg/dL (0.15-1.2); Total Protein 6.1 g/dL (6.6-8.7)
[2023-12-12 01:10] LABS: Lactic Sepsis W/Reflex 1.1 mmol/L (0.5-2.2)
[2023-12-12 01:16] LABS: Procalcitonin 0.14 ng/mL (0-0.5)
[2023-12-12 01:19] LABS: Magnesium 1.9 mg/dL (1.7-2.3)
[2023-12-12] MEDS: piperacillin-tazobactam 3.375 GM in sodium chloride 0.9% (plus) 50 ML IV (01:24)
[2023-12-12] MEDS: potassium chloride ER 20 mEq Tablet 40 MEQ PO (01:25)
== END 2023-12-12 07:15 | disposition home or self-care (01) ==
PROVIDERS: Emergency Provider Emergency Medicine; PCP Nurse Practitioner Family
DX: J18.9 Pneumonia, unspecified organism (principal); F17.210 Nicotine dependence, cigarettes, uncomplicated; E78.5 Hyperlipidemia, unspecified; J44.9 Chronic obstructive pulmonary disease, unspecified
CPT/HCPCS: 36415; 36600; 71045; 80051; 80053; 82330; 82805; 83605; 83735; 84145; 85025; 87040; 96365; 99284; J2543

== ENCOUNTER → 2024-04-14 12:11 | Outpatient (BNVA) | payer MEDICARE, OTHER, SELFPAY | PROVIDERS: PCP Nurse Practitioner Family; Visit Provider Internal Medicine Critical Care Medicine | DX: J44.9 Chronic obstructive pulmonary disease, unspecified (principal); J96.91 Respiratory failure, unspecified with hypoxia; F17.200 Nicotine dependence, unspecified, uncomplicated; R05.3 Chronic cough; J96.11 Chronic respiratory failure with hypoxia; K21.9 Gastro-esophageal reflux disease without esophagitis | CPT/HCPCS: 99214 ==

== ENCOUNTER 2024-05-14 12:29 | Outpatient (CLI) | payer MEDICARE, OTHER, SELFPAY ==
--- NOTE | 2024-05-14 13:00 | USCV_ITS ---
Julia Ramires Age: 69 Gender: F : 1955 Exam Date: 05/14/2024 12:55 Ordering Phys: Kristin Trujillo MD Technologist: CT Exam Location: [facility] [place] Indication: rodriguez BP: 131 / 72 HR: 82 Rhythm: Sinus Technical Quality: Adequate MEASUREMENTS (Male / Female) Normal Values 2D ECHO LVOT Diameter 1.9 cm LV Ejection Fraction MOD 4C 76.9 % LV Ejection Fraction MOD 2C 73.5 % LV Ejection Fraction 2C AL 74.5 % LA Diameter 2.4 cm RA Systolic Volume 4C AL 25.5 ml RA Systolic Volume 4C MOD 23.6 ml LA Sys Volume AL 22.2 cm cubed LA Sys Volume Index AL 13.6 cm cubed/m squared Aorta at Sinotubular Diameter 2.4 cm IVC Diameter 1.9 cm DOPPLER AV Peak Velocity 127.0 cm/s LVOT Peak Velocity 114.0 cm/s AV Area Cont Eq vti 2.9 cm squared AV Area Cont Eq pk 2.5 cm squared MV Peak Velocity 114.0 cm/s MV Area PHT 2.6 cm squared Mitral E to A Ratio 0.9 TR Peak Velocity 149.0 cm/s TR Peak Gradient 8.9 mmHg TV Peak E Velocity 66.0 cm/s Right Atrial Pressure 3.0 mmHg Pulmonary Artery Systolic Pressu 11.9 mmHg FINDINGS Left Ventricle Left ventricle is normal in size. LV systolic function is normal with EF 60-65%. No regional wall motion abnormalities are seen. Grade 1 diastolic dysfunction. Right Ventricle Normal in size and function Right Atrium Normal in size Left Atrium Normal in size Mitral Valve Structurally normal mitral valve. Mild mitral regurgitation Aortic Valve Structurally normal aortic valve. No significant stenosis or regurgitation. Tricuspid Valve Insufficient TR jet to calculate RVSP. Pulmonic Valve Not well visualized Pericardium Normal Aorta Normal in size IVC Appears to be normal CONCLUSIONS LV systolic function is normal with EF of 60-65% Grade 1 diastolic dysfunction Mild mitral regurgitation No comparison studies are available. Carlitos Maria MD (Electronically Signed) Final Date: 15 May 2024 12:15 S
== END 2024-05-14 12:30 | disposition home or self-care (01) ==
LOC: RAD 12:30
PROVIDERS: PCP Nurse Practitioner Family; Visit Provider Internal Medicine Critical Care Medicine
DX: I50.30 Unspecified diastolic (congestive) heart failure (principal); J96.91 Respiratory failure, unspecified with hypoxia; J44.9 Chronic obstructive pulmonary disease, unspecified; R05.3 Chronic cough
CPT/HCPCS: 93306

== ENCOUNTER 2024-06-10 10:47 | Outpatient (CLI) | payer MEDICARE, OTHER, SELFPAY ==
[2024-06-10 10:57] VITALS: PULSE 99; RESP 18; O2SAT 96
[2024-06-10] MEDS: albuterol 2.5 mg/3 mL Neb INHALATION (10:58)
[2024-06-10 11:01] VITALS: PULSE 102
== END 2024-06-10 10:48 | disposition home or self-care (01) ==
LOC: RT 10:47
PROVIDERS: PCP Nurse Practitioner Family; Visit Provider Internal Medicine Critical Care Medicine
DX: J44.9 Chronic obstructive pulmonary disease, unspecified (principal); R94.2 Abnormal results of pulmonary function studies
CPT/HCPCS: 94060; 94726; 94729; J7613

== ENCOUNTER → 2024-07-01 12:55 | Outpatient (BNVA) | payer MEDICARE, OTHER, SELFPAY | PROVIDERS: PCP Nurse Practitioner Family; Visit Provider Nurse Practitioner Family | DX: E55.9 Vitamin D deficiency, unspecified (principal); E78.49 Other hyperlipidemia | CPT/HCPCS: 80053; 80061; 82306; 84443; 85025 ==

== ENCOUNTER 2025-01-03 04:04 | Emergency (ER) | payer MEDICARE, OTHER, SELFPAY ==
[2025-01-03] VITALS (8 sets, daily range): BP systolic 111–125; BP diastolic 40–90; PULSE 99–112; RESP 17–36; TEMP 36.5; O2SAT 92–96; BMI 21.6
--- NOTE | 2025-01-03 04:08 | ECG_ITS ---
[facility] Test Date: 2025-01-03 Pat Name: Julia Ramires Department: Room: Gender: Female Women Nurse: : 1955 Requested By: Jasmeet Bynum Order Number: [id number] Esteban MD: MARK HERNANDEZ Measurements Intervals [place] Rate: 110 P: 83 IL: 133 QRS: 82 QRSD: 84 T: 79 QT: 314 QTc: 426 Interpretive Statements SINUS TACHYCARDIA POSSIBLE RIGHT ATRIAL ENLARGEMENT [0.25mV P-WAVE] POSSIBLE LEFT ATRIAL ENLARGEMENT [-0.1mV P-WAVE IN V1/V2] ABNORMAL RHYTHM ECG Compared to ECG 08/18/2023 06:33:50 Sinus rhythm no longer present ST (T wave) deviation no longer present Electronically Signed On 01-05-2025 21:01:23 CDT by MARK HERNANDEZ [email or web address]
--- NOTE | 2025-01-03 04:17 | XRR_ITS ---
PROCEDURE INFORMATION: Exam: XR Chest Exam date and time: 01/03/2025 4:20 AM Age: 69 years old Clinical indication: Shortness of breath; C/O SOB. History of copd. TECHNIQUE: Imaging protocol: Radiologic exam of the chest. Views: 1 view. COMPARISON: CR (CHEST, ) 12/12/2023 12:21 AM FINDINGS: Lungs: Chronic interstitial change. No consolidation. Pleural spaces: Unremarkable. No pleural effusion. No pneumothorax. Heart/Mediastinum: Unremarkable. No cardiomegaly. Bones/joints: Unremarkable. XR/XR chest 1V portable [id number] IMPRESSION: No acute findings.
[2025-01-03] MEDS: ipratropium-albuterol 3 mL Neb INHALATION (04:26)
[2025-01-03 04:37] LABS: Basophils % 0.2 %; Hematocrit 38.9 % (36-47); Lymphocytes # 1.2 10^3/uL (0.8-4.8); Lymphocytes % 7.6 %; Mean Corpuscular HGB Conc 31.4 g/dL (30-55); Mean Corpuscular Hemoglobin 30.4 pg (27-33); Mean Platelet Volume 10.1 fL (7.4-10.4); Monocytes # 1.5 10^3/uL (0.2-0.9); Monocytes % 9.3 %; Neutrophils # 13.32 10^3/uL (1.8-7.7); Neutrophils % 82.5 %; Nucleated Red Blood Cells % 0 %; Platelet Count 270 10^3/cmm (157-399); Red Blood Count 4.01 10^6/uL (3.85-5.65); White Blood Count 16.16 10^3/uL (3.29-11.43)
[2025-01-03 04:42] LABS: Base Excess VBG 0.2 mmol/L (-3.0-3.0); Blood Gas Sample Site Not specified; Blood Gas Sample Type Venous; HCO3 VBG 25.1 mmol/L (24-28); PCO2 VBG 40.5 mmHg (41-51); PO2 VBG 45.2 mmHg (25-40); Venous Blood Gas Hematocrit 43.2 % (37-47)
--- NOTE | 2025-01-03 04:53 | ED_ITS ---
HPI - SOB/Dyspnea 2 General: Chief Complaint: Shortness of Breath/Dyspnea Stated Complaint: shortness of breath Time Seen by Provider: 01/03/25 04:16 History of Present Illness: HPI Narrative: The patient, with a history of COPD, presents to the emergency department with a chief complaint of shortness of breath that has been worsening over the past 3 days. The patient reports feeling unable to breathe and states they just felt bad and needed to get more air. The shortness of breath has been progressively worsening over the last 3 days, though the patient is unsure of any specific triggers or activities that exacerbated the condition. The patient also reports a productive cough, though the nature of the sputum was not specified. Additionally, the patient mentions experiencing a low fever recently, suggesting a possible infectious process. The patient attributes the illness to their , stating he gave it to them. The patient's COPD history is significant, and they acknowledge being aware of the increased mortality risk associated with COPD exacerbations. Despite this knowledge, the patient delayed seeking medical attention for 3 days after the onset of symptoms, indicating potential issues with adherence to recommended care guidelines. Related Data Home Medications ?Medication ?Instructions ?Recorded ?Confirmed ergocalciferol (vitamin D2) 50 mcg 50 mcg PO DAILY 07/01/24 (2,000 unit) capsule Previous Rx's ?Medication ?Instructions ?Recorded denosumab 60 mg/mL subcutaneous 60 mg SUBCUT .q 6mo #1 mL 10/30/22 syringe (Prolia) azelastine 137 mcg (0.1 %) nasal 1 spray intranasal BI D #30 mL 11/06/22 spray duloxetine 60 mg capsule,delayed 60 mg PO DAILY #90 ca ps 06/26/23 release (Cymbalta) mirtazapine 30 mg disintegrating 30 mg PO DAILY #90 ta bs 06/26/23 tablet montelukast 10 mg tablet 10 mg PO DAILY #90 tabs 06/10 04/01 budesonide 160 mcg-glycopyr 9 2 inh inhalation BID #32 .1 grams 07/03/23 mcg-formot 4.8 mcg/actuation HFA inhaler (Breztri Aerosphere) ibuprofen 800 mg tablet 800 mg PO Q8H #30 tabs 07/25 dexamethasone 6 mg tablet 6 mg PO DAILY #7 tabs albuterol sulfate 90 mcg/actuation 1 inh inhalation QI D PRN shortness 09/26/23 aerosol inhaler of breath or wheezing #8.5 g dorothy albuterol sulfate 2.5 mg/3 mL 2.5 mg (3 mL) inhalation QID 10/29/23 (0.083 %) solution for nebulization shortness of breat h or wheezing #180 mL ipratropium 0.5 mg-albuterol 3 mg 3 ml inhalation Q4H PRN shortness 11/19/23 (2.5 mg base)/3 mL nebulization of breath or wheezing #90 mL [facility] bed #1 ea 12/11/23 omeprazole 40 mg capsule,delayed 40 mg PO DAILY #30 ca ps 04/16/24 release roflumilast 250 mcg tablet 250 mcg PO DAILY COPD 4 wee ks #30 04/16/24 (Daliresp) tabs azithromycin 500 mg tablet See Rx Instructions PO .COM PLEX #3 01/03/25 (Zithromax) tabs prednisone 20 mg tablet 20 mg PO DAILY 7 days #7 tab s 01/03/25 Allergies Allergy/AdvReac Type Severity Reaction Status Date / Time No Known Allergies Allergy Verified 04/14/24 12:54 [facility] ED 2 PFS: Medical History (Updated 01/03/25 @ 06:05 by Jasmeet Bynum DO) Chronic neck pain Overactive bladder Vitamin D deficiency Shortness of breath Hyperlipidemia GERD (gastroesophageal reflux disease) Depression H/O reduction of closed dislocation Left wrist dislocation COPD (chronic obstructive pulmonary disease) Surgical History S/P carpal tunnel release S/P hysterectomy No significant past surgical history Family History Denies family history of Diabetes Clotting disorder Dementia Hyperlipidemia Family history of premature coronary artery disease Social History Smoking and tobacco/nicotine status: never used tobacco/nicotine Quit status (tobacco/nicotine): considering quitting Second hand smoke exposure: No Alcohol intake: never Substance/Drug Use: never Lives independently: Yes Household members: spouse and family Housing: House Marital status: Current occupational status: retired Do you think of yourself as: Straight/Heterosexual Current gender identity: Female Physical Exam 2 Const: COMMON NORMALS: no acute distress, patient oriented x3, healthy appearing, alert and well nourished HENMT: COMMON NORMALS: normocephalic HEAD & SCALP: normocephalic Eye: COMMON NORMALS: EOMs intact bilaterally Neck/C-Spine: COMMON NORMALS: full ROM and supple Resp: EFFORT & INSPECTION: Yes tachypneic, Yes labored and Yes audible wheezes AUSCULTATION: crackles Laterality: right, rhonchi right upper, wheezes throughout and diminished lung sounds on the right in the lower lung june Cardio: COMMON NORMALS: regular rhythm, No gallops present (Cardio) and No murmurs present (Cardio) RATE: tachycardic RHYTHM: regular rhythm GI: COMMON NORMALS: Soft to palpation and non-tender PALPATION: Yes Soft to palpation Extremity: GENERAL: Yes normal exam except as noted Neuro: COMMON NORMALS: patient oriented x3 SENSORIUM/ORIENTATION: Yes alert Skin: COMMON NORMALS: no rashes or lesions noted GENERAL SKIN EXAM: no rashes or lesions noted Course 2 Vital Signs: Vital signs: Vital Signs Temperature 97.7 F 01/03/25 04:11 Pulse Rate 99 01/03/25 06:00 Respiratory Rate 23 H 01/03/25 06:00 Blood Pressure 125/65 01/03/25 06:00 Pulse Oximetry 96 01/03/25 06:00 Oxygen Delivery Me thod Nasal Cannula 01/03/25 04:26 Oxygen Flow Rate 2 01/03/25 04:26 MDM - SOB/Dyspnea Medical Decision Making 69-year-old female presents to the emergency department for evaluation of shortness of breath. She has been feeling worse over the last several days with worsening shortness of breath. She has also noticed some fevers. Her has been sick recently and she believes that she became sick with what ever he had, but she does not know what he had. She has a past medical history of COPD. Ordered DuoNeb, CBC, CMP, chest x-ray for further evaluation of her shortness of breath. Patient's chest x-ray was negative. Her VBG did not show signs of COPD exacerbation however her physical exams were consistent with COPD exacerbation. Plan to treat the patient as an outpatient with azithromycin and prednisone as she is now on her home O2 and her tachypnea has improved significantly. She is still slightly tachycardic which is likely secondary to illness. Return precautions were discussed and the patient was discharged home in stable condition. Lab Data 01/03/25 04:25 01/03/25 04:25 Labs/Radiology: Radiology Impressions Chest X-Ray 01/03/25 04:17 IMPRESSION: No acute findings. Laboratory Results WBC 16.16 10^3/uL (3.29-11.43) H 01/03/25 04:25 RBC 4.01 10^6/uL (3.85-5.65) 01/03/25 04:25 Hgb 12.20 g/dL (11.27-16.99) 01/03/25 04:25 Hct 38.9 % (36-47) 01/03/25 04:25 MCV 97.0 fl (85-98) 01/03/25 04:25 MCH 30.4 pg (27-33) 01/03/25 04:25 MCHC 31.4 g/dL (30-55) 01/03/25 04:25 RDW 14.0 % (12.1-15.1) 01/03/25 04:25 Plt Count 270 10^3/cmm (157-399) 01/03/25 04:25 MPV 10.1 fL (7.4-10.4) 01/03/25 04:25 Neut % (Auto) 82.5 % 01/03/25 04:25 Lymph % (Auto) 7.6 % 01/03/25 04:25 [place] % (Auto) 9.3 % 01/03/25 04:25 Eos % (Auto) 0.0 % 01/03/25 04:25 Baso % (Auto) 0.2 % 01/03/25 04:25 Neut # (Auto) 13.32 10^3/uL (1.8-7.7) H 01/03/25 04:25 Lymph # (Auto) 1.2 10^3/uL (0.8-4.8) 01/03/25 04:25 [place] # (Auto) 1.5 10^3/uL (0.2-0.9) H 01/03/25 04:25 Eos # (Auto) 0.0 10^3/uL (0.0-0.8) 01/03/25 04:25 Baso # (Auto) 0.0 10^3/uL (0.0-0.1) 01/03/25 04: Nucleated RBC % (auto) 0 % 01/03/25 04: Nucleated RBCs # 0.0 /100WBC 01/03/25 04:25 Specimen Type Venous 01/03/25 04:31 Sample Site Not specified 01/03/25 04:31 Jose Test N/a 01/03/25 04:31 VBG pH 7.40 (7.32-7.42) 01/03/25 04:31 VBG pCO2 40.5 mmHg (41-51) L 01/03/25 04:31 VBG pO2 45.2 mmHg (25-40) H 01/03/25 04:31 VBG HCO3 25.1 mmol/L (24-28) 01/03/25 04:31 VBG Base Excess 0.2 mmol/L (-3.0-3.0) 01/03/25 04:31 VBG Hematocrit 43.2 % (37-47) 01/03/25 04:31 Manager Lvn ID [email or web address] 01/03/25 04:31 Sodium 136 mmol/L (136-145) 01/03/25 04:25 Potassium 4.1 mmol/L (3.5-5.1) 01/03/25 04:25 Chloride 99 mmol/L (98-107) 01/03/25 04:25 Carbon Dioxide 22 mmol/L (22-29) 01/03/25 04:25 Anion Gap 19.1 (5-19) H 01/03/25 04:25 BUN 12 mg/dL (8-23) 01/03/25 04:25 Creatinine 0.8 mg/dL (0.5-0.9) 01/03/25 04:25 GFR Calculation 71.5 mL/min (90-130) L 01/03/25 04:25 Glucose 102 mg/dL (65-115) 01/03/25 04:25 Calculated Osmolality 282 mOsm/kg (285-295) L 01/03/25 04:25 Calcium 9.2 mg/dL (8.5-10.5) 01/03/25 04:25 Magnesium 1.9 mg/dL (1.7-2.3) 01/03/25 04:25 Total Bilirubin 0.8 mg/dL (0.15-1.2) 01/03/25 04:25 AST 11 U/L (0-32) 01/03/25 04:25 ALT 6 U/L (0-33) 01/03/25 04:25 Alkaline Phosphatase 153 U/L (35-105) H 01/03/25 04:25 NT-Pro-B Natriuret Pep 1030 pg/mL (0-125) H 01/03/25 04:25 Total Protein 7.0 g/dL (6.6-8.7) 01/03/25 04:25 Albumin 3.5 g/dL (3.5-5.2) 01/03/25 04:25 Globulin 3.5 g/dL (1.3-4.6) 01/03/25 04:25 All radiology interpretation(s) finalized by discharge EKG Data EKG 1: Interpretation: Sinus tachycardia with a rate of 110, parable 133, QRS duration 84, QTc of 379, no ST segment elevation or depression Discharge Plan Discharge Patient Disposition: Home Clinical Impression: Acute exacerbation of chronic obstructive airways disease Condition: Stable Prescriptions: New azithromycin [Zithromax] 500 mg tablet See Rx Instructions .ROUTE .COMPLEX Qty: 3 0RF Rx Instructions: For 250 mg dose pack: take 500 mg today (day 1), then 250 mg for 4 days (days 2-5) prednisone 20 mg tablet 20 mg PO DAILY 7 Days Qty: 7 0RF Rx Instructions: days 11-21 of therapy No Action ergocalciferol (vitamin D2) 50 mcg (2,000 unit) capsule 50 mcg PO DAILY ibuprofen 800 mg tablet 800 mg PO Q8H Qty: 30 0RF ipratropium-albuterol 0.5 mg-3 mg(2.5 mg base)/3 mL solution for nebulization 3 ml inhalation Q4H PRN (Reason: shortness of breath or wheezing) Qty: 90 2RF roflumilast [Daliresp] 250 mcg tablet 250 mcg PO DAILY 28 Days Qty: 30 0RF Rx Instructions: start 250mg a day for 4 weeks and continue with 500 mg/ day - omeprazole 40 mg capsule,delayed release(DR/EC) 40 mg PO DAILY Qty: 30 0RF (DME) hospital bed See Rx Instructions .Route .MEDSUPPLY Qty: 1 0RF Rx Instructions: As directed Prolia 60 mg/mL syringe 60 mg SUBCUT .q 6mo Qty: 1 0RF azelastine 137 mcg (0.1 %) aerosol,spray 1 spray intranasal BID Qty: 30 6RF Rx Instructions: administer into each nostril montelukast 10 mg tablet 10 mg PO DAILY Qty: 90 1RF mirtazapine 30 mg tablet,disintegrating 30 mg PO DAILY Qty: 90 1RF duloxetine [Cymbalta] 60 mg capsule,delayed release(DR/EC) 60 mg PO DAILY Qty: 90 1RF Breztri Aerosphere 160-9-4.8 mcg/actuation HFA aerosol inhaler 2 inh inhalation BID Qty: 32.1 1RF albuterol sulfate 90 mcg/actuation HFA aerosol inhaler 1 inh INHALATION QID PRN (Reason: shortness of breath or wheezing) Qty: 8.5 2RF albuterol sulfate 2.5 mg /3 mL (0.083 %) solution for nebulization 2.5 mg inhalation QID Qty: 180 1RF dexamethasone 6 mg tablet 6 mg PO DAILY Qty: 7 0RF Discharge Orders: Discharge ED (Routine); Ordered 01/03/25 Ordered By: Jasmeet Bynum Discharge Diet: Advance as tolerated Discharge Activity: Increase activity as tolerated Patient Instructions: Opioid Safety, Pain Management Activity Restrictions/Additional Instructions: Please return the emergency department with any new or worsening symptoms. Please follow-up your primary care physician next week for further management of COPD. Print Language: Tuvaluan Coding Level of Care Code ED Program Aide Group Work for Juliette Edwards
[2025-01-03 05:02] LABS: Alanine Aminotransferase 6 U/L (0-33); Albumin Level 3.5 g/dL (3.5-5.2); Alkaline Phosphatase 153 U/L (35-105); Anion Gap 19.1 (5-19); Aspartate Amino Transferase 11 U/L (0-32); Blood Urea Nitrogen 12 mg/dL (8-23); Calcium 9.2 mg/dL (8.5-10.5); Carbon Dioxide 22 mmol/L (22-29); Chloride 99 mmol/L (98-107); Creatinine Clr Calc Pharmacy 62.2512; Globulin 3.5 g/dL (1.3-4.6); Glomerular Filtration Rate 71.5 mL/min (90-130); Glucose 102 mg/dL (65-115); Magnesium 1.9 mg/dL (1.7-2.3); NT Pro B Type Natriuretic Pept 1030 pg/mL (0-125); Osmolality Calculated 282 mOsm/kg (285-295); Potassium 4.1 mmol/L (3.5-5.1); Sodium 136 mmol/L (136-145); Total Bilirubin 0.8 mg/dL (0.15-1.2)
== END 2025-01-03 07:10 | disposition home or self-care (01) ==
PROVIDERS: Emergency Provider General Practice
DX: J44.1 Chronic obstructive pulmonary disease with (acute) exacerbation (principal); E78.5 Hyperlipidemia, unspecified
CPT/HCPCS: 71045; 80053; 82803; 83735; 83880; 85025; 93005; 94640; 99285; J9999